=== PATIENT | male | born 2000 | race Hispanic/Latino ===

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

== ENCOUNTER 2022-06-12 16:13 | Emergency (ER) | payer BC, SELFPAY ==
[2022-06-12] MEDS ORDERED: DICYCLOMINE HCL 10 MG CAP ONE (17:04)
[2022-06-12] MEDS ORDERED: ONDANSETRON 4 MG/2 ML VIAL ONE (17:04)
[2022-06-12] MEDS ORDERED: FAMOTIDINE 20 MG/2 ML VIAL IV ONE (17:05)
[2022-06-12] MEDS ORDERED: NA CHLORIDE 0.9% 1,000 ML ONE (17:05)
[2022-06-12 17:09] LABS: Absolute Lymphocytes (CBC) 0.6 K/uL (0.7-4.9); Lymphocytes % 10.2 % (15.3-44.8); MCV 91.2 fL (80-100); MPV 8.4 fL (7.6-11.3); RBC Red Blood Cell Count 5.04 M/uL (4.33-5.43)
[2022-06-12 17:13] LABS: Specific Gravity < 1.005 (1.005-1.030); Urine Bilirubin NEGATIVE (Negative); Urine Blood Negative (Negative); Urine Clarity Clear (Clear); Urine Color Colorless (Yellow); Urine Glucose NEGATIVE (Negative); Urine Protein NEGATIVE (Negative); Urine Urobilinogen Normal (Normal)
[2022-06-12 17:30] LABS: Albumin 4.4 g/dL (3.4-5.0); Bilirubin Total 0.8 mg/dL (0.2-1.0); Potassium 3.3 mEq/L (3.5-5.1); Protein, Total 8.4 g/dL (6.4-8.2)
--- NOTE | 2022-06-12 18:41 | RAD REPORT ---
EXAM DESCRIPTION: CTAbdomen Pelvis W Contrast - 06/12/2022 6:24 pm CLINICAL HISTORY: ABD PAIN COMPARISON: No comparisons TECHNIQUE: CT of the abdomen and pelvis was performed. All CT scans are performed using dose optimization technique as appropriate and may include automated exposure control or mA/KV adjustment according to patient size. FINDINGS: Lower chest: No acute abnormality. Liver: No acute abnormality or suspicious lesions. Biliary: No biliary ductal dilatation. Stomach: No significant focal abnormality. Duodenum: No significant focal abnormality. Pancreas: No significant abnormality. Spleen: No significant abnormality. Adrenal: No suspicious lesions. Kidney/ureter: No hydronephrosis. No renal calculi. Retroperitoneum: No retroperitoneal adenopathy. Vascular: No aneurysm. Bowel: No significant focal abnormality. Normal appendix . Peritoneum: No ascites or free air. Bladder: Grossly unremarkable. Reproductive: No adnexal masses. Bones: No acute fracture. Other: n/a IMPRESSION: No acute intra-abdominal or pelvic finding. Normal appendix.
--- NOTE | 2022-06-12 18:45 | EDPHYS ---
Physician Documentation [facility] Name: Hipolito Kiran Age: 21 yrs Sex: Male : 2000 Arrival Date: 06/12/2022 Time: 16:13 Bed 20 Private MD: ED Physician Major Mancilla HPI: 06/12 16:49 This 21 yrs old Male presents to ER via Ambulatory with complaints of kb Abdominal Pain, Nausea/Vomiting/Diarrhea. 16:49 The patient presents with abdominal pain. The patient has not recently seen a physician.kb 16:50 The patient presents to the emergency department with nausea, vomiting, diarrhea, kb abdominal pain, described as crampy. Onset: The symptoms/episode began/occurred yesterday. Possible causes: unknown. The symptoms are aggravated by nothing. The symptoms are alleviated by nothing. Associated signs and symptoms: Pertinent positives: abdominal pain, diarrhea, nausea, vomiting. Severity of symptoms: At their worst the symptoms were moderate in the emergency department the symptoms are unchanged. The patient has not experienced similar symptoms in the past. Historical: - Allergies: 16:46 No Known Allergies; vg1 - Home Meds: 16:50 Acyclovir Oral [Active]; vg1 - Immunization history:: Client reports receiving the 2nd dose of the Covid vaccine. - Social history:: Smoking status: Patient reports the use of cigarette tobacco products, denies chronic smoking, but will smoke occasionally, Reported history of juuling and/or vaping. ROS: 16:47 Constitutional: Negative for fever, chills, and weight loss. kb 16:47 Abdomen/GI: Positive for abdominal pain, nausea, vomiting, and diarrhea, abdominal cramps. 16:47 All other systems are negative. Exam: 16:47 Constitutional: This is a well developed, well nourished patient who is awake, alert, kb and in no acute distress. Head/Face: Normocephalic, atraumatic. ENT: Moist Mucous membranes Cardiovascular: Regular rate and rhythm with a normal S1 and S2. No gallops, murmurs, or rubs. No pulse deficits. Respiratory: Respirations even and unlabored. No increased work of breathing. Talking in full sentences Skin: Warm, dry with normal turgor. Normal color. MS/ Extremity: Pulses equal, no cyanosis. Neurovascular intact. Full, normal range of motion. Neuro: Awake and alert, GCS 15, oriented to person, place, time, and situation. Moves all extremities. Normal gait. 16:47 Abdomen/GI: Inspection: abdomen appears normal, Bowel sounds: normal, Palpation: soft, in all quadrants, mild abdominal tenderness, in all quadrants. Vital Signs: 16:46 BP 135 / 74; Pulse 68; Resp 14; Temp 98.4(O); Pulse Ox 99% on R/A; Weight 54.43 kg; vg1 Height 5 ft. 8 in. ; 19:10 BP 128 / 71; Pulse 69; Resp 16; Pulse Ox 100% ; Pain 4/10; nj1 16:46 Body Mass Index 18.25 (54.43 kg, 172.72 cm) 1 19:10 Pain Scale: Adult nj1 MDM: 16:23 Patient medically screened. kb 16:47 Differential diagnosis: gastritis, pancreatitis, viral gastroenteritis. Data reviewed: vital signs, nurses notes. Historians other than the Patient: Parent: father. 18:44 Counseling: I had a detailed discussion with the patient and/or guardian regarding: the kb historical points, exam findings, and any diagnostic results supporting the discharge/admit diagnosis, lab results, radiology results, the need for outpatient follow up, a family practitioner, to return to the emergency department if symptoms worsen or persist or if there are any questions or concerns that arise at home. 06/12 16:26 Order name: CBC with Diff; Complete Time: 17:15 kb 06/12 16:26 Order name: CMP; Complete Time: 17:30 kb 06/12 16:26 Order name: Lipase; Complete Time: 17:30 kb 06/12 16:26 Order name: Urinalysis w/ reflexes; Complete Time: 17:15 kb 06/12 17:34 Order name: CT Abd/Pelvis - IV Contrast Only; Complete Time: 18:44 kb 06/12 16:26 Order name: IV Saline Lock; Complete Time: 17:07 kb 06/12 16:26 Order name: Labs collected and sent; Complete Time: 17:09 kb Administered Medications: 17:07 Drug: NS 0.9% IV 1000 ml Route: IV; Rate: 1 bolus; Site: right antecubital; ko1 17:07 Drug: Ondansetron IVP 4 mg Route: IVP; Site: right antecubital; ko1 17:08 Drug: Dicyclomine PO 20 mg Route: PO; ko1 19:10 Follow up: Response: No adverse reaction nj1 17:09 Drug: Famotidine IVP 20 mg Route: IVP; Site: right antecubital; ko1 18:55 Drug: Potassium Chloride PO 20 mEq Route: PO; ko1 19:10 Follow up: Response: No adverse reaction nj1 Disposition Summary: 06/12/22 18:44 Discharge Ordered Location: Home kb Condition: Stable kb Diagnosis - Nausea with vomiting, unspecified kb - Diarrhea, unspecified kb Followup: kb - With: Emergency Department - When: As needed - Reason: Worsening of condition Followup: kb - With: Private Physician - When: 2 - 3 days - Reason: Recheck today's complaints, Continuance of care, Re-evaluation by your physician Discharge Instructions: - Discharge Summary Sheet kb - Viral Gastroenteritis, Adult, [id number] kb Forms: - Medication Reconciliation Form kb - Thank You Letter kb - Antibiotic Education kb - Prescription Opioid Use kb Prescriptions: - ondansetron 4 mg Oral Tablet,disintegrating - take 1 tablet by ORAL route every 6 hours As needed; 12 tablet; Refills: 0, kb Product Selection Permitted - dicyclomine 20 mg Oral Tablet - take 1 tablet by ORAL route 4 times per day As needed; 20 tablet; Refills: 0, kb Product Selection Permitted Addendum: 06/14/2022 08:37 Co-signature as Attending Physician, Major Mancilla MD I reviewed the patient's care r n provided by the Advanced Practice Provider and agree with the diagnosis and treatment plan. Signatures: Dispatcher [employer] Mell Oseguera, APPLICATION COORDINATOR-C APPLICATION COORDINATOR-Ckb Major Mancilla MD MD rn Garcia, Victoria, RN RN vg1 Tahmina Scott RN RN ko1 Tamia Bagley RN nj1
--- NOTE | 2022-06-12 18:45 | ER ---
Nurse's Notes [facility] Name: Hipolito Kiran Age: 21 yrs Sex: Male : 2000 Arrival Date: 06/12/2022 Time: 16:13 Bed 20 Private MD: Diagnosis: Nausea with vomiting, unspecified;Diarrhea, unspecified Presentation: 06/12 16:44 Chief complaint: Patient states: ABD with NVD since yesterday morning. Coronavirus vg1 screen: Vaccine status: Patient reports receiving the 2nd dose of the covid vaccine. Client denies travel out of the [place] in the last 14 days. Ebola Screen: Patient negative for fever greater than or equal to 101.5 degrees Fahrenheit, and additional compatible Ebola Virus Disease symptoms Patient denies exposure to infectious person. Patient denies travel to an Ebola-affected area in the 21 days before illness onset. Risk Assessment: Do you want to hurt yourself or someone else?. Onset of symptoms was June 12, 2022. 16:44 Method Of Arrival: Ambulatory vg1 16:44 Acuity: BECK 3 ss Triage Assessment: 16:46 General: Appears in no apparent distress. uncomfortable, Behavior is calm, cooperative. vg1 Pain: Complains of pain in abdomen. Cardiovascular: Patient's skin is warm and dry. GI: Abdomen is flat, Reports diarrhea, nausea, vomiting. Historical: - Allergies: 16:46 No Known Allergies; vg1 - Home Meds: 16:50 Acyclovir Oral [Active]; vg1 - Immunization history:: Client reports receiving the 2nd dose of the Covid vaccine. - Social history:: Smoking status: Patient reports the use of cigarette tobacco products, denies chronic smoking, but will smoke occasionally, Reported history of juuling and/or vaping. Screenin:05 [facility] ED Fall Risk Assessment (Adult) History of falling in the last 3 months, ko1 including since admission No falls in past 3 months (0 pts) Confusion or Disorientation No (0 pts) Intoxicated or Sedated No (0 pts) Impaired Gait No (0 pts) Mobility Assist Device Used No (0 pt) Altered Elimination No (0 pt) Score/Fall Risk Level 0 - 2 = Low Risk Oriented to surroundings, Maintained a safe environment, Educated pt \T\ family on fall prevention, incl call for assistance when getting out of bed, Assessed \T\ reinforced patient's understanding of fall precautions, Provided non-skid footwear, Hourly rounding (assess needs \T\ fall precautionary measures) done, Used ambulatory aids as needed (educated on \T\ assisted with), Used gait belt as appropriate. Abuse screen: Denies threats or abuse. Denies injuries from another. Nutritional screening: No deficits noted. Tuberculosis screening: No symptoms or risk factors identified. Assessment: 17:05 General: Appears in no apparent distress. uncomfortable, Behavior is calm, cooperative, ko1 appropriate for age, flat. Pain: Complains of pain in abdomen. Neuro: No deficits noted. Cardiovascular: No deficits noted. Respiratory: No deficits noted. GI: Bowel sounds present X 4 quads. Abd is soft X 4 quads Reports lower abdominal pain, upper abdominal pain, diarrhea, nausea, vomiting. : No deficits noted. EENT: No deficits noted. Derm: No deficits noted. Musculoskeletal: No deficits noted. Vital Signs: 16:46 BP 135 / 74; Pulse 68; Resp 14; Temp 98.4(O); Pulse Ox 99% on R/A; Weight 54.43 kg; vg1 Height 5 ft. 8 in. ; 19:10 BP 128 / 71; Pulse 69; Resp 16; Pulse Ox 100% ; Pain 4/10; nj1 16:46 Body Mass Index 18.25 (54.43 kg, 172.72 cm) vg1 19:10 Pain Scale: Adult [facility] ED Course: 16:22 Patient arrived in ED. am2 16:22 Mell Burns FNP-C [facility]. kb 16:22 Major Mancilla MD is Attending Physician. kb 16:46 Arm band placed on. vg1 16:56 Tahmina Scott, CARROL is Primary Nurse. ko1 17:05 Patient has correct armband on for positive identification. Bed in low position. Call ko1 light in reach. Side rails up X 1. Adult w/ patient. Pulse ox on. NIBP on. Warm blanket given. 17:05 No provider procedures requiring assistance completed. Inserted saline lock: 20 gauge ko1 in right antecubital area, using aseptic technique. Blood collected. 17:55 Triage completed. ss 18:26 CT Abd/Pelvis - IV Contrast Only In Process Unspecified. EDMS 19:10 IV discontinued, intact, bleeding controlled. nj1 Administered Medications: 17:07 Drug: NS 0.9% IV 1000 ml Route: IV; Rate: 1 bolus; Site: right antecubital; ko1 17:07 Drug: Ondansetron IVP 4 mg Route: IVP; Site: right antecubital; ko1 17:08 Drug: Dicyclomine PO 20 mg Route: PO; ko1 19:10 Follow up: Response: No adverse reaction nj1 17:09 Drug: Famotidine IVP 20 mg Route: IVP; Site: right antecubital; ko1 18:55 Drug: Potassium Chloride PO 20 mEq Route: PO; ko1 19:10 Follow up: Response: No adverse reaction nj1 Medication: 17:05 VIS not applicable for this client. ko1 Outcome: 18:44 Discharge ordered by MD. kb 19:10 Discharged to home ambulatory, with family. nj1 19:10 Condition: stable nj1 19:10 Discharge instructions given to patient, family, Instructed on discharge instructions, follow up and referral plans. medication usage, Demonstrated understanding of instructions, follow-up care, medications, Prescriptions given X 2. 19:12 Patient left the ED. nj1 Signatures: Dispatcher [employer] EDMS Mell Burns, OVER SHORT AND DAMAGE CLERK-C OVER SHORT AND DAMAGE CLERK-Ckb Francesca eNal, RN RN Melissa Fox Victoria, RN RN vg1 Tahmina Scott RN RN ko1 Tamia Bagley, CARROL RN nj1 Corrections: (The following items were deleted from the chart) 19:12 17:10 BP 128 / 71; Pulse 69bpm; Resp 16bpm; Pulse Ox 100%; Pain 4/10, Adult; nj1 nj1
[2022-06-12] MEDS ORDERED: POTASSIUM CL SA 10 MEQ TAB PO ONE (19:00)
[2022-06-12 19:29] VITALS: TEMP 98.4
[2022-06-12 19:31] VITALS: BP 128/71; O2SAT 100
== END 2022-06-12 19:12 | disposition home or self-care (01) ==
LOC: ER 16:13
DX: R11.2 Nausea with vomiting, unspecified (principal); R19.7 Diarrhea, unspecified
CPT/HCPCS: 36415; 74177; 80053; 81003; 83690; 85025; 96374; 96375; 99284; J2405; J7030; Q9967

== ENCOUNTER 2022-06-21 12:48 | Emergency (ER) | payer SELFPAY ==
[2022-06-21 13:34] LABS: Absolute Lymphocytes (CBC) 0.5 K/uL (0.7-4.9); Hematocrit 48.7 % (39.6-49.0); Lymphocytes % 9.5 % (15.3-44.8); MCV 91.6 fL (80-100); MPV 8.9 fL (7.6-11.3); RBC Red Blood Cell Count 5.31 M/uL (4.33-5.43)
[2022-06-21 13:34] LABS: Specific Gravity < 1.005 (1.005-1.030); Urine Bilirubin NEGATIVE (Negative); Urine Blood Negative (Negative); Urine Clarity Clear (Clear); Urine Color Colorless (Yellow); Urine Glucose NEGATIVE (Negative); Urine Protein NEGATIVE (Negative); Urine Urobilinogen Normal (Normal)
[2022-06-21] MEDS ORDERED: KETOROLAC 30 MG/ML INJ ONE (13:42)
[2022-06-21] MEDS ORDERED: PROMETHAZINE INJ 25 MG/ML AMP ONE (13:42)
[2022-06-21] MEDS ORDERED: NA CHLORIDE 0.9% 1,000 ML ONE (13:43)
[2022-06-21 13:47] LABS: Barbiturates NEGATIVE (NEGATIVE); Benzodiazepines NEGATIVE (NEGATIVE); Cocaine NEGATIVE (NEGATIVE); METHAMPHETAM NEGATIVE (NEGATIVE); Methadone NEGATIVE (NEGATIVE); Opiates NEGATIVE (NEGATIVE); Phencyclidine NEGATIVE (NEGATIVE); THC Cannibis POSITIVE (NEGATIVE)
[2022-06-21 13:49] LABS: Albumin 4.7 g/dL (3.4-5.0); Bilirubin Total 0.7 mg/dL (0.2-1.0); Potassium 3.9 mEq/L (3.5-5.1); Protein, Total 8.9 g/dL (6.4-8.2)
[2022-06-21] MEDS ORDERED: LORazepam 2 MG/ML VIAL ONE (14:04)
--- NOTE | 2022-06-21 14:16 | RAD REPORT ---
EXAM DESCRIPTION: RAD - Abdomen Acute Series - 06/21/2022 2:06 pm CLINICAL HISTORY: ABD PAIN COMPARISON: ABDOMEN ACUTE SERIES dated 02/05/2011; Abdomen Pelvis W Contrast dated 06/12/2022 FINDINGS: Nonobstructive bowel gas pattern. No acute osseous abnormality.Visualized lungs are unrema rkable.No abnormal calcifications. Distended but nondilated small bowel centrally. IMPRESSION: Nonobstructive bowel gas pattern.
--- NOTE | 2022-06-21 14:37 | ER ---
Nurse's Notes [facility] Name: Hipolito Kiran Age: 21 yrs Sex: Male : 2000 Arrival Date: 06/21/2022 Time: 12:48 Bed 20 Private MD: Diagnosis: Nausea and vomiting;Anxiety;Marijuana use Presentation: 06/21 12:52 Chief complaint: Patient states: Vomiting X 1 week. Coronavirus screen: At this time, ld1 the client does not indicate any symptoms associated with coronavirus-19. Ebola Screen: No symptoms or risks identified at this time. Initial Sepsis Screen: Does the patient meet any 2 criteria? No. Patient's initial sepsis screen is negative. Does the patient have a suspected source of infection? No. Patient's initial sepsis screen is negative. Risk Assessment: Do you want to hurt yourself or someone else? Patient reports no desire to harm self or others. Onset of symptoms was June 21, 2022. 12:52 Method Of Arrival: Ambulatory ld1 12:52 Acuity: BECK 3 ld1 Triage Assessment: 12:52 General: Appears in no apparent distress. comfortable, Behavior is calm, cooperative, ld1 appropriate for age. Pain: Complains of pain in right lower quadrant and left lower quadrant Pain does not radiate. Pain currently is 6 out of 10 on a pain scale. EENT: No signs and/or symptoms were reported regarding the EENT system. Neuro: Level of Consciousness is awake, alert, obeys commands, Oriented to person, place, time, situation. Cardiovascular: Capillary refill < 3 seconds Patient's skin is warm and dry. Respiratory: Airway is patent Respiratory effort is even, unlabored. GI: Abdomen is flat, non-distended, Reports lower abdominal pain, nausea. : No signs and/or symptoms were reported regarding the genitourinary system. Derm: No signs and/or symptoms reported regarding the dermatologic system. Musculoskeletal: No signs and/or symptoms reported regarding the musculoskeletal system. Historical: - Allergies: 12:52 No Known Allergies; ld1 - Home Meds: 12:52 Acyclovir Oral [Active]; ld1 - PMHx: 12:52 Herpes simplex; ld1 - PSHx: 12:52 None; ld1 - Immunization history:: Adult Immunizations up to date, Client reports receiving the 2nd dose of the Covid vaccine. - Social history:: Smoking status: Reported history of juuling and/or vaping. Patient/guardian denies using alcohol. Screenin:28 [facility] ED Fall Risk Assessment (Adult) Score/Fall Risk Level 0 - 2 = Low Risk ll1 Oriented to surroundings, Maintained a safe environment, Educated pt \T\ family on fall prevention, incl call for assistance when getting out of bed, Hourly rounding (assess needs \T\ fall precautionary measures) done. Abuse screen: Denies threats or abuse. Nutritional screening: No deficits noted. Tuberculosis screening: No symptoms or risk factors identified. Assessment: 13:35 Reassessment: No changes from previously documented assessment. Patient and/or family ll1 updated on plan of care and expected duration. Pain level reassessed. Patient is alert, oriented x 3, equal unlabored respirations, skin warm/dry/pink. 14:27 Reassessment: No changes from previously documented assessment. Dr. Lamb at . ll1 Vital Signs: 12:52 BP 141 / 91; Pulse 78; Resp 18; Temp 97.9(O); Pulse Ox 99% on R/A; Weight 54.43 kg; ld1 Height 5 ft. 8 in. ; Pain 6/10; 14:29 BP 136 / 88; Pulse 77; Resp 17; Pulse Ox 100% on R/A; ll1 12:52 Body Mass Index 18.25 (54.43 kg, 172.72 cm) ld1 12:52 Pain Scale: Adult ld1 ED Course: 12:50 Patient arrived in ED. rg4 12:50 Tania Lamb MD is Attending Physician. sd2 12:52 Triage completed. ld1 12:52 Arm band placed on right wrist. ld1 13:09 Sarita Galeas, RN is Primary Nurse. ph 13:30 Inserted saline lock: 22 gauge in right antecubital area, using aseptic technique. ll1 Blood collected. 13:33 Flu Sent. ph 13:33 Urine Drug Screen Sent. ph 13:33 Urinalysis w/ reflexes Sent. ph 14:07 XRAY Abdomen Acute Series In Process Unspecified. EDMS 14:28 Patient has correct armband on for positive identification. Bed in low position. Call ll1 light in reach. Client placed on continuous cardiac and pulse oximetry monitoring. NIBP monitoring applied. 14:45 IV discontinued, intact, bleeding controlled, No redness/swelling at site. Pressure ll1 dressing applied. 14:50 No provider procedures requiring assistance completed. ll1 Administered Medications: 13:43 Drug: NS 0.9% IV 1000 ml Route: IV; Rate: 1 bolus; Site: right antecubital; ph 14:51 Follow up: Response: No adverse reaction; IV Status: Completed infusion; IV Intake: ll1 1000ml 13:43 Drug: Promethazine IVP 12.5 mg Route: IVP; Site: right antecubital; ph 14:17 Follow up: Response: No adverse reaction; Nausea is decreased ph 13:44 Drug: Ketorolac IVP 15 mg Route: IVP; Site: right antecubital; ph 14:17 Follow up: Response: No adverse reaction; Pain is decreased; RASS: Alert and Calm (0) ph 14:12 Drug: Ativan IVP 1 mg {Note: RASS 0.} Route: IVP; Site: right antecubital; ph 14:51 Follow up: Response: No adverse reaction ll1 Medication: 14:51 VIS not applicable for this client. ll1 Intake: 14:51 IV: 1000ml; Total: 1000ml. ll1 Outcome: 14:36 Discharge ordered by . sd2 14:47 Patient left the ED. ll1 14:50 Discharged to home ambulatory. ll1 14:50 Condition: stable 14:50 Discharge instructions given to patient, family, Instructed on discharge instructions, follow up and referral plans. no drinking with medication, no driving heavy equipment, medication usage, Demonstrated understanding of instructions, follow-up care, medications, Prescriptions given X 2. Signatures: Dispatcher [employer] EDMS Sarita Galeas RN RN Kyra Malave rg4 Michael Mireles RN RN ll1 Rose Stewart RN RN Tania Lainez MD MD sd2 Corrections: (The following items were deleted from the chart) 13:48 13:33 SARS-COV-2 Antigen Rapid+I.LAB.BRZ drawn and sent. CANDE
--- NOTE | 2022-06-21 14:37 | EDPHYS ---
Physician Documentation [facility] Name: Hipolito Kiran Age: 21 yrs Sex: Male : 2000 Arrival Date: 06/21/2022 Time: 12:48 Bed 20 Private MD: ED Physician Tania Lamb HPI: 06/21 13:03 This 21 yrs old Male presents to ER via Ambulatory with complaints of Vomiting.sd2 13:03 21-year-old male presents with chief complaint of nausea and vomiting. He was seen here sd2 last week for similar symptoms with associated abdominal pain and diarrhea. He reports the diarrhea has improved but he has still had some here and there. He states he has not been able to keep anything down at home despite taking the Bentyl and Zofran that was prescribed for him. He does have a scheduled follow-up appointment with his PCP but is not until next week. Pain is mostly localized to left side of abdomen per patient report and feels like a cramping sensation. Denies any new food exposures, antibiotic use or recent travel. pt also reports fever with temp of 103F 2 days ago. . Historical: - Allergies: 12:52 No Known Allergies; ld1 - Home Meds: 12:52 Acyclovir Oral [Active]; ld1 - PMHx: 12:52 Herpes simplex; ld1 - PSHx: 12:52 None; ld1 - Immunization history:: Adult Immunizations up to date, Client reports receiving the 2nd dose of the Covid vaccine. - Social history:: Smoking status: Reported history of juuling and/or vaping. Patient/guardian denies using alcohol. ROS: 13:03 Constitutional: Negative for fever, chills, and weight loss, Eyes: Negative for injury, sd2 pain, redness, and discharge, Cardiovascular: Negative for chest pain, palpitations, and edema, Respiratory: Negative for shortness of breath, cough, wheezing. Abdomen/GI: Positive for abdominal pain, nausea, vomiting, diarrhea. MS/Extremity: Negative for injury and deformity, Skin: Negative for injury, rash, and discoloration, Neuro: Negative for headache, numbness and tingling. Exam: 13:03 Constitutional: This is a well developed, well nourished patient who is awake, alert, sd2 and in no acute distress. Head/Face: Normocephalic, atraumatic. Eyes: EOMI, normal conjunctiva bilaterally Chest/axilla: Normal chest wall appearance and motion. Nontender with no deformity. Cardiovascular: Regular rate and rhythm with a normal S1 and S2. No gallops, murmurs, or rubs. 2+ distal pulses. Respiratory: Lungs have equal breath sounds bilaterally, clear to auscultation and percussion. No rales, rhonchi or wheezes noted. No increased work of breathing, no retractions or nasal flaring. Abdomen/GI: Soft, non-tender, with normal bowel sounds. No guarding or rebound. No evidence of tenderness throughout. Skin: Warm, dry with normal turgor. Normal color with no rashes, no lesions, and no evidence of cellulitis. MS/ Extremity: Pulses equal, no cyanosis. Neurovascular intact. Full, normal range of motion. Ambulatory without difficulty. Psych: Awake, alert, with orientation to person, place and time. Behavior, mood, and affect are within normal limits. Vital Signs: 12:52 BP 141 / 91; Pulse 78; Resp 18; Temp 97.9(O); Pulse Ox 99% on R/A; Weight 54.43 kg; ld1 Height 5 ft. 8 in. ; Pain 6/10; 14:29 BP 136 / 88; Pulse 77; Resp 17; Pulse Ox 100% on R/A; ll1 12:52 Body Mass Index 18.25 (54.43 kg, 172.72 cm) ld1 12:52 Pain Scale: Adult ld1 MDM: 13:01 Patient medically screened. sd2 13:03 Differential diagnosis: Gastritis, cholecystitis, pancreatitis, SBO, diverticulitis, sd2 kidney stone, appendicitis, UTI, dehydration, electrolyte abnormality among others. Data reviewed: vital signs, nurses notes. 14:33 Data reviewed: lab test result(s), radiologic studies, plain films. Consideration of sd2 Admission/Observation Escalation of care including admission/observation considered. I considered the following discharge prescriptions or medication management in the emergency department Medications were administered in the Emergency Department. See MAR. Independent interpretation of the following test(s) in the Emergency Department X-Ray: My interpretation is no obstructive process. Test considered but Not performed: CT: CT performed and negative 1 week ago, benign abdomen today. Historians other than the Patient: Parent: provides further history. Care significantly affected by the following chronic conditions: Anxiety. Counseling: I had a detailed discussion with the patient and/or guardian regarding: the historical points, exam findings, and any diagnostic results supporting the discharge/admit diagnosis, lab results, radiology results, the need for outpatient follow up, to return to the emergency department if symptoms worsen or persist or if there are any questions or concerns that arise at home. Response to treatment: the patient's symptoms have markedly improved after treatment. ED course: Labs and imaging reviewed. Labs are grossly within normal clinical limits. X-ray with no signs of obstructive process. With the patient's abdominal exam today being benign and his symptoms improved after medications, I do not see a reason to repeat the CT scan due to the radiation risk which was discussed with the patient and he is in agreement at this time. After further discussion with the nurse and his father at bedside, the patient reports he thinks a lot of this may be due to his anxiety. He has gone off of his medication that he was previously on which included Seroquel and Lamictal back in September and has had progressively worsening anxiety since then. He states he was on the same dose for 2 years and decided to try to go off of it himself. He is requesting to restart. He will also follow back up with his provider, Tania Bell, who he saw previously for these issues. Pt also THC positive. Advised on cessation of marijuana which he uses daily. Pt is in agreement and states he will not drink or smoke as he did not previously when on the medication.. 06/21 13:03 Order name: CBC with Diff; Complete Time: 13:56 sd2 06/21 13:03 Order name: CMP; Complete Time: 13:56 sd2 06/21 13:03 Order name: Lipase; Complete Time: 13:56 sd2 06/21 13:03 Order name: Urinalysis w/ reflexes; Complete Time: 13:56 sd2 06/21 13:03 Order name: Urine Drug Screen; Complete Time: 13:56 sd2 06/21 13:06 Order name: Flu; Complete Time: 14:23 sd2 06/21 13:39 Order name: SARS-COV-2 RT PCR; Complete Time: 14:17 em1 06/21 13:03 Order name: XRAY Abdomen Acute Series; Complete Time: 14:17 sd2 Administered Medications: 13:43 Drug: NS 0.9% IV 1000 ml Route: IV; Rate: 1 bolus; Site: right antecubital; ph 14:51 Follow up: Response: No adverse reaction; IV Status: Completed infusion; IV Intake: ll1 1000ml 13:43 Drug: Promethazine IVP 12.5 mg Route: IVP; Site: right antecubital; ph 14:17 Follow up: Response: No adverse reaction; Nausea is decreased ph 13:44 Drug: Ketorolac IVP 15 mg Route: IVP; Site: right antecubital; ph 14:17 Follow up: Response: No adverse reaction; Pain is decreased; RASS: Alert and Calm (0) ph 14:12 Drug: Ativan IVP 1 mg {Note: RASS 0.} Route: IVP; Site: right antecubital; ph 14:51 Follow up: Response: No adverse reaction ll1 Disposition Summary: 06/21/22 14:36 Discharge Ordered Location: Home sd2 Problem: an ongoing problem sd2 Symptoms: have improved sd2 Condition: Stable sd2 Diagnosis - Nausea and vomiting sd2 - Anxiety sd2 - Marijuana use sd2 Followup: sd2 - With: Private Physician - When: 1 - 2 days - Reason: Recheck today's complaints, Continuance of care, Re-evaluation by your physician Discharge Instructions: - Discharge Summary Sheet sd2 - Preventing Marijuana Misuse sd2 - Managing Anxiety, Adult sd2 - Cannabinoid Hyperemesis Syndrome sd2 Forms: - Work release form ll1 - Medication Reconciliation Form sd2 - Thank You Letter sd2 - Antibiotic Education sd2 - Prescription Opioid Use sd2 Prescriptions: - Lamictal 25 mg Oral tablet - take 1 tablet by ORAL route daily; 14 tablet; Refills: 0, Product Selection sd2 Permitted - Seroquel 25 mg Oral tablet - take 1 tablet by ORAL route daily; 14 tablet; Refills: 0, Product Selection sd2 Permitted Signatures: Dispatcher [employer] Sarita Gamez RN RN ph Rose Stewart RN RN ld1 Tania Lamb MD MD sd2 Michael Mireles RN ll1 Corrections: (The following items were deleted from the chart) 13:05 13:03 21-year-old male presents with chief complaint of nausea and vomiting. He was sd2 seen here last week for similar symptoms with associated abdominal pain and diarrhea. He reports the diarrhea has improved but he has still had some here and there. He states he has not been able to keep anything down at home despite taking the Bentyl and Zofran that was prescribed for him. He does have a scheduled follow-up appointment with his PCP but is not until next week. Pain is mostly localized to left side of abdomen per patient report and feels like a cramping sensation. Denies any new food exposures, antibiotic use or recent travel.. sd2 13:48 13:07 SARS-COV-2 Antigen Rapid+I.LAB.BRZ ordered. EDMS EDMS
[2022-06-21 15:06] VITALS: TEMP 97.9
[2022-06-21 15:11] VITALS: BP 136/88; O2SAT 100
== END 2022-06-21 14:47 | disposition home or self-care (01) ==
LOC: ER 12:48
DX: R11.2 Nausea with vomiting, unspecified (principal); F41.9 Anxiety disorder, unspecified; F12.90 Cannabis use, unspecified, uncomplicated
CPT/HCPCS: 74022; 80053; 80307; 81003; 83690; 85025; 87804; 96361; 96374; 96375; 99284; J2550; J7030; U0003

== ENCOUNTER 2022-06-25 09:41 | Emergency (ER) | payer SELFPAY ==
[2022-06-25 10:54] LABS: Absolute Lymphocytes (CBC) 0.5 K/uL (0.7-4.9); Hematocrit 48.5 % (39.6-49.0); Lymphocytes % 17.2 % (15.3-44.8); MCV 91.3 fL (80-100); MPV 8.8 fL (7.6-11.3); RBC Red Blood Cell Count 5.31 M/uL (4.33-5.43)
[2022-06-25 11:01] LABS: Barbiturates NEGATIVE (NEGATIVE); Benzodiazepines NEGATIVE (NEGATIVE); Cocaine NEGATIVE (NEGATIVE); METHAMPHETAM NEGATIVE (NEGATIVE); Methadone NEGATIVE (NEGATIVE); Opiates NEGATIVE (NEGATIVE); Phencyclidine NEGATIVE (NEGATIVE); THC Cannibis POSITIVE (NEGATIVE)
[2022-06-25 11:23] LABS: ALT/SGPT 15 U/L (16-61); AST/SGOT 9 U/L (15-37); Albumin 4.4 g/dL (3.4-5.0); Alkaline Phosphatase 78 U/L (45-117); BUN Blood Urea Nitrogen 11 mg/dL (7-18); Bicarbonate 28 mEq/L (21-32); Bilirubin Direct 0.2 mg/dL (0-0.2); Bilirubin Indirect, Calculated 0.4 mg/dL (0.2-0.8); Bilirubin Total 0.6 mg/dL (0.2-1.0); Glomerular Filtration Rate 93 ml/min (=/>90); Glucose Level 103 mg/dL (74-106); Potassium 3.6 mEq/L (3.5-5.1); Protein, Total 8.3 g/dL (6.4-8.2); Sodium Level 137 mEq/L (136-145)
[2022-06-25 12:30] LABS: Blood Morphology Comment NOT SEEN (NOT SEEN); Platelet Estimate ADEQ
--- NOTE | 2022-06-25 12:53 | ER ---
Nurse's Notes [facility] Name: Hipolito Kiran Age: 21 yrs Sex: Male : 2000 Arrival Date: 06/25/2022 Time: 09:41 Bed 14 Private MD: Diagnosis: Suicidal ideations Presentation: 06/25 09:54 Chief complaint: Patient states: Suicidal thought with a plan "overdose", never nj1 attempted in the past. Coronavirus screen: Vaccine status: Patient reports receiving the 2nd dose of the covid vaccine. Ebola Screen: No symptoms or risks identified at this time. Initial Sepsis Screen: Does the patient meet any 2 criteria? No. Patient's initial sepsis screen is negative. Does the patient have a suspected source of infection? No. Patient's initial sepsis screen is negative. Risk Assessment: Do you want to hurt yourself or someone else? Patient reports desire/thoughts of hurting themselves or someone else. Provider notified. Onset of symptoms was June 22, 2022. 09:54 Method Of Arrival: Ambulatory [facility] 09:54 Acuity: BECK 2 nj Historical: - Allergies: 09:57 No Known Allergies; nj1 - Home Meds: 09:57 Acyclovir Oral [Active]; nj1 - PMHx: 09:57 Herpes simplex; nj1 - PSHx: 09:57 None; nj1 - Immunization history:: Client reports having NOT received the Covid vaccine. - Social history:: Smoking status: Reported history of juuling and/or vaping. Screenin:10 [facility] ED Fall Risk Assessment (Adult) History of falling in the last 3 months, db including since admission No falls in past 3 months (0 pts) Confusion or Disorientation No (0 pts) Intoxicated or Sedated No (0 pts) Impaired Gait No (0 pts) Mobility Assist Device Used Yes (1 pt) Altered Elimination No (0 pt) Score/Fall Risk Level 0 - 2 = Low Risk Oriented to surroundings, Maintained a safe environment. Abuse screen: Denies threats or abuse. Denies injuries from another. Nutritional screening: No deficits noted. Tuberculosis screening: No symptoms or risk factors identified. Assessment: 10:05 Reassessment: patient to room with SI. db 10:10 Reassessment: Patient appears in no apparent distress at this time. Patient and/or db family updated on plan of care and expected duration. Pain level reassessed. patient is changing into blue scrubs. 10:15 General: Appears in no apparent distress. comfortable, slender, Behavior is calm, ko1 cooperative, appropriate for age, flat, quiet. Pain: Denies pain. Neuro: No deficits noted. Cardiovascular: No deficits noted. Respiratory: No deficits noted. GI: No deficits noted. : No deficits noted. EENT: No deficits noted. Derm: No deficits noted. Musculoskeletal: No deficits noted. 12:15 Reassessment: Patient appears in no apparent distress at this time. Patient and/or eh3 family updated on plan of care and expected duration. Pain level reassessed. Pt speaking with [facility] at bedside. 13:15 Reassessment: Patient appears in no apparent distress at this time. Patient and/or eh3 family updated on plan of care and expected duration. Pain level reassessed. Patient is alert, oriented x 3, equal unlabored respirations, skin warm/dry/pink. Pt sitting up on side of bed eating lunch. Sister visiting at bedside. 14:15 Reassessment: Patient appears in no apparent distress at this time. Patient and/or eh3 family updated on plan of care and expected duration. Pain level reassessed. Patient is alert, oriented x 3, equal unlabored respirations, skin warm/dry/pink. Sister visiting at bedside. 15:15 Reassessment: Patient appears in no apparent distress at this time. Patient and/or eh3 family updated on plan of care and expected duration. Pain level reassessed. Patient is alert, oriented x 3, equal unlabored respirations, skin warm/dry/pink. Sister visiting at bedside. 16:15 Reassessment: Patient appears in no apparent distress at this time. Patient and/or eh3 family updated on plan of care and expected duration. Pain level reassessed. Patient is alert, oriented x 3, equal unlabored respirations, skin warm/dry/pink. Sister visiting at bedside. 17:15 Reassessment: Patient appears in no apparent distress at this time. Patient and/or eh3 family updated on plan of care and expected duration. Pain level reassessed. Patient is alert, oriented x 3, equal unlabored respirations, skin warm/dry/pink. Sister visiting at bedside. 18:15 Reassessment: Patient appears in no apparent distress at this time. Patient and/or eh3 family updated on plan of care and expected duration. Pain level reassessed. Patient is alert, oriented x 3, equal unlabored respirations, skin warm/dry/pink. Sister visiting at bedside. 19:15 Reassessment: Patient appears in no apparent distress at this time. Patient and/or eh3 family updated on plan of care and expected duration. Pain level reassessed. Patient is alert, oriented x 3, equal unlabored respirations, skin warm/dry/pink. Brother visiting at bedside. 20:15 Reassessment: Patient appears in no apparent distress at this time. Patient and/or eh3 family updated on plan of care and expected duration. Pain level reassessed. Patient is alert, oriented x 3, equal unlabored respirations, skin warm/dry/pink. Brother visiting at bedside. 21:15 Reassessment: Patient appears in no apparent distress at this time. Patient is alert, eh3 oriented x 3, equal unlabored respirations, skin warm/dry/pink. 22:15 Reassessment: Patient appears in no apparent distress at this time. Patient is alert, eh3 oriented x 3, equal unlabored respirations, skin warm/dry/pink. 06/26 00:00 General: pt resting with eyes closed, sitter at bedside, respirations even and non as6 labored . 02:00 Reassessment: Patient appears in no apparent distress at this time. pt resting with eye as6 closed, sitter at bedside. 04:00 Reassessment: Patient appears in no apparent distress at this time. No changes from as6 previously documented assessment. General:. 05:23 Reassessment: Patient appears in no apparent distress at this time. Spoke with Gal garner with [facility]. 06:00 Reassessment: Patient appears in no apparent distress at this time. No changes from as6 previously documented assessment. pt resting with eyes closed, sitter at bedside. no complaints or concerns at this time. 07:12 Reassessment: Patient appears in no apparent distress at this time. No changes from ko1 previously documented assessment. Patient and/or family updated on plan of care and expected duration. Pain level reassessed. Patient is alert, oriented x 3, equal unlabored respirations, skin warm/dry/pink. Patient denies pain at this time. Psych: 06/25 10:05 [place] Suicide Severity Screening: In the past month, have you wished you were db or wished you could go to sleep and not wake up? Patient responds "yes." "In the past month, have you actually had any thoughts of killing yourself?" Patient responds "yes." "In your lifetime, have you ever done anything, started to do anything, or prepared to do anything to end your life?" Patient responds "no.". Subjective: Patient's mood is sad, Delusions are denied, Hallucinations are denied Having thoughts of suicide. Subjective: Having thoughts of suicide. Plan for suicide is overdose on pills. Objective: Patient is cooperative, Speech is normal, Affect is appropriate. Interventions: Removed personal items and placed in bag. Patient placed in hospital gown. Searched person for dangerous items. Urine collected and sent for urine drug test. Belonging list filled out. Patient reassessed during use of restraints. Patient is physically safe. Safety Checks: Personal items have been removed. Door is open. Visitors are present. sister. Pt denies substance abuse. Commitment: Patient will be a voluntary commitment. Vital Signs: 09:54 BP 136 / 90; Pulse 92; Resp 16; Temp 98.2(O); Pulse Ox 100% ; Weight 54.43 kg; Height 5 nj1 ft. 8 in. ; Pain 3/10; 20:45 BP 129 / 83; Pulse 70; Resp 18; Temp 100(IR); Pulse Ox 100% on R/A; eh3 20:50 Temp 98.4(O); 3 06/26 07:40 BP 126 / 73; Pulse 63; Resp 17; Temp 98.6; Pulse Ox 98% on R/A; rs5 06/25 09:54 Body Mass Index 18.25 (54.43 kg, 172.72 cm) nh1 06/25 09:54 Pain Scale: Adult [facility] ED Course: 06/25 09:43 Patient arrived in ED. rg4 09:44 Deshaun Fonseca PA is PHCP. jmm 09:44 Virgilio Stewart DO is Attending Physician. jmm 09:57 Triage completed. nj1 09:58 Arm band placed on left wrist. nj1 10:05 Anabelle Dia, RN is Primary Nurse. db 10:10 Patient placed in an exam room. db 10:15 Patient has correct armband on for positive identification. Bed in low position. Call ko1 light in reach. Adult w/ patient. Valuables Given to family. Sitter at bedside. Noise minimized. Warm blanket given. Patient is placed in psych hold. 10:32 Urine Drug Screen Sent. ko1 10:43 Inserted saline lock: 20 gauge in right forearm, using aseptic technique. Blood zm collected. 10:45 Acetaminophen Sent. zm 10:45 Basic Metabolic Panel Sent. zm 10:45 CBC with Diff Sent. zm 10:45 ETOH Level Sent. zm 10:45 Hepatic Function Sent. zm 10:45 PT-INR Sent. zm 10:45 Ptt, Activated Sent. zm 10:45 Salicylate Sent. zm 10:45 Urine Drug Screen Sent. zm 14:58 faxed chart to [facility]. bd 18:23 spoke with Ruben at [facility], chart was received,pt is on wait list. 06/26 05:36 Paged [facility] resident requesting doc to doc. 1 05:37 Attending Physician role handed off by Virgilio Stewart DO sp4 05:37 Magno Swenson MD is Attending Physician. sp4 05:38 Received a call back from resident. 1 05:47 Doc to doc completed at [facility]. acceptance by Dr Blanco. 1 05:49 Called [facility]. They informed me to call for transfer after 8am. ah1 08:26 pt accepted in transfer to [facility] by dr blanco, admin approval given by mary Holcomb. 08:45 No provider procedures requiring assistance completed. IV discontinued, intact, ko1 bleeding controlled, No redness/swelling at site. Pressure dressing applied. Administered Medications: No medications were administered Medication: 06:09 VIS not applicable for this client. as6 Outcome: 06/25 12:53 ER care complete, transfer ordered by . kendrick 06/26 08:45 Transferred by ground EMS [facility]. to other acute care facility: [place] [id number] Psych. Transfer form completed. Condition: stable Discharge instructions given to EMS, Instructed on the need for transfer, Demonstrated understanding of instructions. 08:47 Patient left the ED. ko1 Signatures: Daniela Mccurdy Joel, PA PA jmm Garcia, Rubi rg4 Jimmie Washington, RN RN as6 Sumi Galeas RN RN eh3 Rupa Londono Aylin, RN RN aa9 Tahmina Scott, RN RN ko1 Anabelle Dia, CARROL RN db Ruben Taylor rs5 Magno Swenson MD MD sp4 Tamia Bagley RN RN nj1 Jr [facility] Corrections: (The following items were deleted from the chart) 06/25 21:00 12:15 Reassessment: Patient appears in no apparent distress at this time. Patient eh3 and/or family updated on plan of care and expected duration. Pain level reassessed. Pt speaking with [facility] at bedside [facility] : 13:15 Reassessment: Patient appears in no apparent distress at this time. Patient eh3 and/or family updated on plan of care and expected duration. Pain level reassessed. Patient is alert, oriented x 3, equal unlabored respirations, skin warm/dry/pink. [facility] 13:15 Reassessment: Patient appears in no apparent distress at this time. Patient eh3 and/or family updated on plan of care and expected duration. Pain level reassessed. Patient is alert, oriented x 3, equal unlabored respirations, skin warm/dry/pink. Pt sitting up on side of bed eating lunch 3 : 14:15 Reassessment: Patient appears in no apparent distress at this time. Patient eh3 and/or family updated on plan of care and expected duration. Pain level reassessed. Patient is alert, oriented x 3, equal unlabored respirations, skin warm/dry/pink. 3 : 15:15 Reassessment: Patient appears in no apparent distress at this time. Patient eh3 and/or family updated on plan of care and expected duration. Pain level reassessed. Patient is alert, oriented x 3, equal unlabored respirations, skin warm/dry/pink. [facility] 06/26 05:45 05:36 Paged [facility] resident [place] [phone]
--- NOTE | 2022-06-25 12:53 | EDPHYS ---
Physician Documentation [facility] Name: Hipolito Kiran Age: 21 yrs Sex: Male : 2000 Arrival Date: 06/25/2022 Time: 09:41 Bed 14 Private MD: ED Physician Magno Swenson HPI: 06/25 10:01 This 21 yrs old Male presents to ER via Ambulatory with complaints of Suicidal jmm Ideation. 10:01 This is a 21-year-old male that presents to the ED with complaints of suicidal jmm ideation. Patient states he is, with a plan to overdose. Patient has felt similar in the past but is now wanted to act on it. Also states a history of cutting himself.. 10:01 The patient presents to the emergency department with suicide ideation. jmm 10:01 Onset: The symptoms/episode began/occurred today. Associated signs and symptoms: jmm Pertinent positives; suicide ideation, Pertinent negatives: abdominal pain, homicidal ideation, shortness of breath. The patient has not experienced similar symptoms in the past. Historical: - Allergies: 09:57 No Known Allergies; nj1 - Home Meds: 09:57 Acyclovir Oral [Active]; nj1 - PMHx: 09:57 Herpes simplex; nj1 - PSHx: 09:57 None; nj1 - Immunization history:: Client reports having NOT received the Covid vaccine. - Social history:: Smoking status: Reported history of juuling and/or vaping. ROS: 10:01 Constitutional: Negative for fever, chills, and weight loss, Cardiovascular: Negative jmm for chest pain, palpitations, and edema, Respiratory: Negative for shortness of breath, cough, wheezing, and pleuritic chest pain. 10:01 Psych: Positive for suicidal ideation. 10:01 All other systems are negative. Exam: 10:01 Constitutional: This is a well developed, well nourished patient who is awake, alert, jmm and in no acute distress. Head/Face: atraumatic. Eyes: EOMI, no conjunctival erythema appreciated ENT: Moist Mucus Membranes Neck: Trachea midline, Supple Chest/axilla: Normal chest wall appearance and motion. Cardiovascular: Regular rate and rhythm. No edema appreciated Respiratory: Normal respirations, no respiratory distress appreciated Abdomen/GI: Non distended Back: Normal ROM Skin: General appearance color normal 10:01 Musculoskeletal/extremity: ROM: intact in all extremities, full active range of motion. 10:01 Psych: Behavior/mood is pleasant, cooperative, anxious, suicidal. Vital Signs: 09:54 BP 136 / 90; Pulse 92; Resp 16; Temp 98.2(O); Pulse Ox 100% ; Weight 54.43 kg; Height 5 nj1 ft. 8 in. ; Pain 3/10; 20:45 BP 129 / 83; Pulse 70; Resp 18; Temp 100(IR); Pulse Ox 100% on R/A; eh3 20:50 Temp 98.4(O); eh3 06/26 07:40 BP 126 / 73; Pulse 63; Resp 17; Temp 98.6; Pulse Ox 98% on R/A; rs5 06/25 09:54 Body Mass Index 18.25 (54.43 kg, 172.72 cm) [facility] 06/25 09:54 Pain Scale: Adult [facility] MDM: 06/25 10:01 Patient medically screened. [facility] 17:28 Data reviewed: vital signs, nurses notes. Consideration of Admission/Observation [facility] Escalation of care including admission/observation considered. 06/26 07:10 Differential diagnosis: drug withdrawal. acute psychotic break, depression, psychosis sp4 secondary to non-compliance. ED course: Patient was accepted at [facility] and Dr. Blanco with psychiatry was given report on the patient. . 06/25 10:06 Order name: Acetaminophen; Complete Time: 11:26 [facility] 06/25 10:06 Order name: Basic Metabolic Panel; Complete Time: 11:26 [facility] 06/25 10:06 Order name: CBC with Diff; Complete Time: 12:30 [facility] 06/25 10:06 Order name: ETOH Level; Complete Time: 11:20 [facility] 06/25 10:06 Order name: Hepatic Function; Complete Time: 11:26 [facility] 06/25 10:06 Order name: PT-INR; Complete Time: 13:46 [facility] 06/25 10:06 Order name: Ptt, Activated; Complete Time: 13:46 [facility] 06/25 10:06 Order name: Salicylate; Complete Time: 11:45 [facility] 06/25 10:06 Order name: Urine Drug Screen; Complete Time: 11:03 [facility] 06/25 11:13 Order name: Manual Differential; Complete Time: 12:30 EDMS 06/25 10:06 Order name: EKG; Complete Time: 10:08 [facility] 06/25 10:14 Order name: Diet Finger Food; Complete Time: 10:15 zm 06/26 06:09 Order name: Diet Finger Food; Complete Time: 06:10 as6 06/26 08:28 Order name: EKG Electrocardiogram [facility] 06/25 10:06 Order name: EKG - Nurse/Tech; Complete Time: 10:45 [facility] 06/25 10:06 Order name: IV Saline Lock; Complete Time: 10:45 [facility] 06/25 10:06 Order name: Labs collected and sent; Complete Time: 10:45 [facility] 06/25 10:06 Order name: Suicide Screening ([place]); Complete Time: 12:15 [facility] Administered Medications: No medications were administered Disposition: 06/25 16:29 Co-signature as Attending Physician, Virgilio WALDEN was immediately available on-site ms3 in the Emergency Department for consultation in the care of the patient. Disposition Summary: 06/25/22 12:53 Transfer Ordered Transfer Location: [facility] Reason: Higher level of care jmm Condition: Stable jmm Problem: new jmm Symptoms: are unchanged jmm Accepting Physician: Psychiatry(06/26/22 08:47) koLenore Diagnosis - Suicidal ideations [facility] Discharge Instructions: - Discharge Summary Sheet 3 Forms: - Medication Reconciliation Form jmm - SBAR form jmm - Family Work Release 3 Signatures: Dispatcher [employer] EDMS Deshaun Fonseca PA PA Virgilio Martin DO DO ms3 Tahmina Scott, RN RN ko1 Magno Swenson MD MD sp4 Tamia Bagley RN RN nj1 Corrections: (The following items were deleted from the chart) 06/26 07:10 06/25 12:53 Psychiatry [facility] sp4 06/26 08:47 07:10 Psychiatry sp4 ko1
[2022-06-25 13:40] LABS: Protime INR 1.13
[2022-06-26] MEDS ORDERED: AZITHROMYCIN 250 MG TAB ONE (07:35)
--- NOTE | 2022-06-26 07:49 | EKG ---
Test Date: 2022-06-25 Test Time: 10:42:15 Marketing Sales Consultant: LOIS MEASUREMENT RESULTS: Intervals: Rate: 65 GA: QRSD: 90 QT: 386 QTc: 401 [place]: P: GA: QRS: 101 T: 46 INTERPRETIVE STATEMENTS: Junctional rhythm Rightward axis Early repolarization Abnormal ECG No previous ECG available for comparison Electronically Signed On 06-26-22 07:46:23 CDT by Jay Slade
[2022-06-26 09:14] VITALS: BP 126/73; TEMP 98.6; O2SAT 98
--- NOTE | 2022-06-26 13:49 | EKG ---
Test Date: 2022-06-25 Test Time: 10:44:28 Reprographics Associate: LOIS MEASUREMENT RESULTS: Intervals: Rate: 58 [place]: QRSD: 98 QT: 360 QTc: 353 [place]: P: [place]: QRS: 104 T: 62 INTERPRETIVE STATEMENTS: Junctional rhythm Rightward axis Nonspecific ST abnormality Abnormal ECG Compared to ECG 06/25/2022 10:42:15 ST (T wave) deviation now present Early repolarization no longer present Electronically Signed On 06-26-22 13:48:19 CDT by Kishor Seo
== END 2022-06-26 08:47 ==
LOC: ER 09:41
DX: R45.851 Suicidal ideations (principal)
CPT/HCPCS: 36415; 80048; 80076; 80307; 85025; 85610; 85730; 93005; 99285; G0480

== ENCOUNTER → 2023-03-04 | Emergency (ER) | payer SELFPAY ==
[~2023-03-04] MED LIST: ONDANSETRON 4 MG (ODT) TAB ONE
[2023-03-04 11:43] LABS: SARS-CoV-2 Antigen Rapid Res Negative (Negative)
--- NOTE | 2023-03-04 12:20 | EDPHYS ---
Physician Documentation [facility] Name: Hipolito Kiran Age: 22 yrs Sex: Male : 2000 Arrival Date: 03/04/2023 Time: 10:29 Bed DX3 Private MD: ED Physician Yogi Bermeo HPI: 03/04 13:41 This 22 yrs old Male presents to ER via Ambulatory with complaints of Vomiting.sb4 13:41 The patient presents to the emergency department with vomiting, 4 times since last sb4 night. Onset: The symptoms/episode began/occurred last night. Possible causes: unknown. The symptoms are aggravated by nothing. The symptoms are alleviated by nothing. Associated signs and symptoms: The patient has no apparent associated signs or symptoms. The patient has not experienced similar symptoms in the past. The patient has not recently seen a physician. Historical: - Allergies: 11:16 No Known Allergies; ld1 - PMHx: 11:16 Herpes simplex; ld1 - Immunization history:: Adult Immunizations up to date. - Social history:: Smoking status: Patient denies any tobacco usage or history of. Patient/guardian denies using alcohol. ROS: 13:41 Constitutional: Negative for fever, chills, and weight loss, sb4 13:41 Abdomen/GI: Positive for nausea and vomiting, 13:41 All other systems are negative, Exam: 13:41 Constitutional: This is a well developed, well nourished patient who is awake, alert, sb4 and in no acute distress. Head/Face: Normocephalic, atraumatic. Eyes: Extra-ocular motions intact. Periorbital areas with no swelling, redness, or edema. ENT: Mucous membranes moist. Cardiovascular: Regular rate and rhythm with a normal S1 and S2. Respiratory: Lungs have equal breath sounds bilaterally, clear to auscultation and percussion. No rales, rhonchi or wheezes noted. No increased work of breathing, no retractions or nasal flaring. Abdomen/GI: Soft, non-tender, no distension. Skin: Warm, dry with normal turgor. Normal color with no rashes, no lesions, and no evidence of cellulitis. MS/ Extremity: Pulses equal, no cyanosis. Neurovascular intact. Full, normal range of motion. Neuro: Awake and alert, GCS 15, oriented to person, place, time, and situation. Motor strength 5/5 in all extremities. Sensory grossly intact. Vital Signs: 11:16 BP 119 / 67; Pulse 85; Resp 18; Temp 98.3(O); Pulse Ox 99% on R/A; Weight 56.7 kg; ld1 Height 5 ft. 8 in. ; Pain 0/10; 12:25 Resp 17; Temp 97.9(TE); ap3 11:16 Body Mass Index 19.01 (56.70 kg, 172.72 cm) ld1 11:16 Pain Scale: Adult ld1 MDM: 11:20 Patient medically screened. sb4 13:41 Differential diagnosis: viral gastroenteritis, covid, flu, strep. Data reviewed: vital sb4 signs, nurses notes, and as a result, I will discharge patient. Test considered but Not performed: Labs: non toxic appearing, no belly pain. Counseling: I had a detailed discussion with the patient and/or guardian regarding the historical points, exam findings, and any diagnostic results supporting the discharge/admit diagnosis, lab results, to return to the emergency department if symptoms worsen or persist or if there are any questions or concerns that arise at home. 03/04 11:18 Order name: Flu; Complete Time: 11:49 [facility] 03/04 11:18 Order name: SARS RAPID; Complete Time: 11:44 [facility] 03/04 11:18 Order name: Strep ld 03/04 11:50 Order name: Throat Culture [facility] 03/04 12:09 Order name: PO challenge; Complete Time: 12:16 sb4 Administered Medications: 11:59 Drug: Ondansetron Oral Disintegrating Tablet Oral Disintegrating Tablet 4 mg PO once ap3 Route: PO; 12:25 Follow up: Response: No adverse reaction; Nausea is decreased ap3 Disposition Summary: 03/04/23 12:19 Discharge Ordered Notes: Location: Home sb4 Problem: new sb4 Symptoms: have improved sb4 Condition: Stable sb4 Diagnosis - Noninfective gastroenteritis and colitis, unspecified sb4 Followup: sb4 - With: Emergency Department - When: As needed - Reason: Trouble breathing, Worsening of condition Discharge Instructions: - Discharge Summary Sheet sb4 - Viral Gastroenteritis, Adult sb4 - Nausea and Vomiting, Adult, [id number] sb4 Forms: - Work release form sb4 - Family Work Release sb4 - Medication Reconciliation Form sb4 - Thank You Letter sb4 - Antibiotic Education sb4 - Prescription Opioid Use sb4 - Patient Portal Instructions sb4 - Leadership Thank You Letter sb4 Prescriptions: - Zofran 4 mg Oral Tablet - take 1 tablet ORAL route every 12 hours As needed; 20 tablet; Refills: 0, sb4 Product Selection Permitted Addendum: 03/05/2023 15:37 I was immediately available for consultation during this patient's visit. I did not e c2 personally see the patient or discuss the patient with the CYDNEY. . Signatures: Dispatcher [employer] Melissa Malone RN RN ap3 Rose Stewart RN RN ld1 Nevaeh Calvin PA-C PA-C sb4 Yogi Bermeo MD MD ec2
--- NOTE | 2023-03-04 12:20 | ER ---
Nurse's Notes [facility] Name: Hipolito Kiran Age: 22 yrs Sex: Male : 2000 Arrival Date: 03/04/2023 Time: 10:29 Bed DX3 Private MD: Diagnosis: Noninfective gastroenteritis and colitis, unspecified Presentation: 03/04 11:16 Chief complaint: Patient states: Vomiting since last night. Coronavirus screen: At this ld1 time, the client does not indicate any symptoms associated with coronavirus-19. Ebola Screen: No symptoms or risks identified at this time. Initial Sepsis Screen: Does the patient meet any 2 criteria? No. Patient's initial sepsis screen is negative. Does the patient have a suspected source of infection? No. Patient's initial sepsis screen is negative. Risk Assessment: Do you want to hurt yourself or someone else? Patient reports no desire to harm self or others. Onset of symptoms was March 04, 2023. 11:16 Method Of Arrival: Ambulatory ld1 11:16 Acuity: BECK 4 ld1 Triage Assessment: 11:16 General: Appears in no apparent distress. comfortable, Behavior is calm, cooperative, ld1 appropriate for age. Pain: Denies pain. EENT: No signs and/or symptoms were reported regarding the EENT system. Neuro: Level of Consciousness is awake, alert, obeys commands, Oriented to person, place, time, situation. Cardiovascular: Capillary refill < 3 seconds Patient's skin is warm and dry. Respiratory: Airway is patent Respiratory effort is even, unlabored. GI: Abdomen is flat, non-distended, Reports nausea, vomiting. Historical: - Allergies: 11:16 No Known Allergies; ld1 - PMHx: 11:16 Herpes simplex; ld1 - Immunization history:: Adult Immunizations up to date. - Social history:: Smoking status: Patient denies any tobacco usage or history of. Patient/guardian denies using alcohol. Screenin:24 [facility] ED Fall Risk Assessment (Adult) History of falling in the last 3 months, ap3 including since admission No falls in past 3 months (0 pts). Abuse screen: Denies threats or abuse. Nutritional screening: No deficits noted. Tuberculosis screening: No symptoms or risk factors identified. Vital Signs: 11:16 BP 119 / 67; Pulse 85; Resp 18; Temp 98.3(O); Pulse Ox 99% on R/A; Weight 56.7 kg; ld1 Height 5 ft. 8 in. ; Pain 0/10; 12:25 Resp 17; Temp 97.9(TE); ap3 11:16 Body Mass Index 19.01 (56.70 kg, 172.72 cm) ld1 11:16 Pain Scale: Adult ld1 ED Course: 10:32 Patient arrived in ED. rg4 10:37 Nevaeh Calvin [facility]-C [facility]. sb4 10:37 Yogi Bermeo MD is Attending Physician. sb4 11:16 Arm band placed on right wrist. ld1 11:17 Triage completed. ld1 11:23 Strep Sent. ld1 11:23 SARS RAPID Sent. ld1 11:23 Flu Sent. ld1 12:24 No provider procedures requiring assistance completed. Patient did not have IV access ap3 during this emergency room visit. 12:25 Patient has correct armband on for positive identification. Adult w/ patient. Provided ap3 Education on: discharge instructions. Administered Medications: 11:59 Drug: Ondansetron Oral Disintegrating Tablet Oral Disintegrating Tablet 4 mg PO once ap3 Route: PO; 12:25 Follow up: Response: No adverse reaction; Nausea is decreased ap3 Medication: 12:25 VIS not applicable for this client. ap3 Outcome: 12:19 Discharge ordered by . sb4 12:24 Discharged to home ambulatory, with family, ap3 12:24 Condition: good 12:24 Discharge instructions given to patient, Instructed on discharge instructions, follow up and referral plans. medication usage, Demonstrated understanding of instructions, follow-up care, medications, Prescriptions given X 1, 12:26 Patient left the ED. ap3 Signatures: Kyra Malave rg4 Melissa Loredo RN RN ap3 Rose Stewart RN RN ld1 Nevaeh Calvin PA-C PA-C sb4
[2023-03-04 13:43] VITALS: BP 119/67; TEMP 97.9; O2SAT 99
== END ==
LOC: ER 10:29
DX: K52.9 Noninfective gastroenteritis and colitis, unspecified (principal); Z11.52 Encounter for screening for COVID-19
CPT/HCPCS: 36415; 87070; 87081; 87804; 87811; 99283; Q0162

== ENCOUNTER 2023-05-22 22:56 | Emergency (ER) | payer SELFPAY ==
--- OUTSIDE RECORDS SUMMARY | 2023-05-22 22:58 | XMS REPORT | Continuity of Care Document ---
Author Name Unknown Address [address] [place] [address] [facility] Address [address] [place] [address] Care Team Providers Care Print Project Manager Name Role Phone YANCY CANO Primary Care Physician Unava CLARITA Stover Attending Clinician Unavailable Clarita Salguero MD Attending Clinician [phone] Andrea Oliva MD Attending Clinician [phone] ANDREA OLIVA Attending Clinician Unavailable Yancy Gonzalez Attending Clinician + [phone] YANCY WHITLEY Attending Clinician Unavail able Doctor Unassigned, [place] Attending Clinician U Gemini Alejandro Attending Clinician [phone] Lab, Adc Fam Pob I Attending Clinician Unavailab GEMINI Ojeda Attending Clinician Unavailable Payers Payer Name Policy Type Policy Number Effective Date Expirati on Date Source HIM TOÑA FROM [facility] [id number] 2022 00:00:00 [facility] [id number] 2014 00:00:00 Problems Condition Name Condition Details Condition Category Status Onset Date Resolution Date Last Treatment Date Treating Clinician Comments Source No known active problems No known active problems Disease [facility] Allergies, Adverse Reactions, Alerts Allergy Name Allergy Type Status Severity Reaction(s) Onset Date Inactive Date Treating Clinician Comments Source Amoxicil gilles-Pot Clavulan ate Propensi ty to adverse reaction s Active Unknown - See comments 05-07 00:00: 00 [facility] AMOXICIL GILLES-POT CLAVULAN ATE DRUG Active Unknown-Cmnt 05-07 00:00: 00 [facility] Social History Social Habit Start Date Stop Date Quantity Comments Source Exposure to SARS-CoV-2 (event) Not sure [facility] of [facility] function 2020-07-26 00:00:00 2020-07-26 00:00:00 [facility] Tobacco use and exposure 2017-03-25 00:00:00 2017-03-25 00:00:00 Smokeless tobacco non-user [facility] Sex Assigned At 2000 00:00:00 2000 00:00:00 [facility] Smoking Status Start Date Stop Date Source Never smoked tobacco [facility] Medications Ordered Medication Name Filled Medication Name Start Date Stop Date Current Medication? Ordering Clinician Indication Dosage Frequency Signature (SIG) Comments Components Source ondansetron (ZOFRAN (PF)) injection 4 mg 2022-02 11:15: 00 02-04 11:10 :00 No 4mg 4 mg, Slow IV Push, ONCE, 1 dose, On Sat02/04/23 at 0515, HELIO [facility] NaCl 0.9% (NS) bolus infusion 1,000 mL 2022-02 10:45: 00 02-04 10:52 :00 No 1000mL at 999 mL/hr, 1,000 mL, IV Infusion, ONCE, 1 dose, On Sat02/04/23 at 0445, STAT [facility] dicyclomine 20 mg tablet 2022-02 00:00: 00 Yes [id number] 20mg Take 1 tablet by mouth 4 (four) times daily. [facility] ondansetron 4 mg disintegrat ing tablet 2022-02 00:00: 00 Yes [id number] 4mg Take 1 tablet by mouth every 4 (four) hours as needed for Nausea and Vomiting (N/V). [facility] No known medications No Un tamra [facility] No known medications No Un tamra ity [facility] No known medications No Un tamra ity [facility] No known medications No Un tamra ity [facility] No known medications No Un tamra [facility] Immunizations Ordered Immunization Name Filled Immunization Name Date Status Comments Source Meningococcal Polysaccharide (groups A, C, Y and W-135) conjugate vaccine (MCV4P) 2020-07-26 00:00:00 Completed [facility] Meningococcal B, OMV 2020-07-26 00:00:00 Completed [facility] Meningococcal Polysaccharide (groups A, C, Y and W-135) conjugate vaccine (MCV4P) 2020-07-26 00:00:00 Completed [facility] Meningococcal B, OMV 2020-07-26 00:00:00 Completed [facility] Meningococcal Polysaccharide (groups A, C, Y and W-135) conjugate vaccine (MCV4P) 2020-07-26 00:00:00 Completed [facility] Meningococcal B, OMV 2020-07-26 00:00:00 Completed [facility] Meningococcal Polysaccharide (groups A, C, Y and W-135) conjugate vaccine (MCV4P) 2020-07-26 00:00:00 Completed [facility] Meningococcal B, OMV 2020-07-26 00:00:00 Completed [facility] Meningococcal Polysaccharide (groups A, C, Y and W-135) conjugate vaccine (MCV4P) 2020-07-26 00:00:00 Completed [facility] Meningococcal B, OMV 2020-07-26 00:00:00 Completed [facility] Meningococcal Polysaccharide (groups A, C, Y and W-135) conjugate vaccine (MCV4P) Unknown Completed [facility] Meningococcal B, OMV Unknown Completed [facility] Vital Signs Vital Name Observation Time Observation Value Comments S ource Diastolic blood pressure 2023-02-04 12:00:00 69 mm[Hg] [facility] Heart rate 2023-02-04 12:00:00 68 /min [facility] Oxygen saturation in Arterial blood by Pulse oximetry 2023-02-04 12:00:00 99 /min [facility] Systolic blood pressure 2023-02-04 12:00:00 117 mm[Hg] [facility] Body temperature 2023-02-04 09:19:00 36.72 Valorie [facility] Respiratory rate 2023-02-04 09:19:00 16 /min [facility] Body height 2023-02-04 09:19:00 172.7 cm [facility] Body weight 2023-02-04 09:19:00 49.669 kg [facility] BMI 2023-02-04 09:19:00 16.65 kg/m2 [facility] Systolic blood pressure 2020-07-26 13:10:00 112 mm[Hg] [facility] Diastolic blood pressure 2020-07-26 13:10:00 68 mm[Hg] [facility] Heart rate 2020-07-26 13:10:00 72 /min [facility] Body temperature 2020-07-26 13:10:00 36.61 Valorie [facility] Respiratory rate 2020-07-26 13:10:00 17 /min [facility] Body height 2020-07-26 13:10:00 169.5 cm [facility] Body weight 2020-07-26 13:10:00 49.499 kg [facility] BMI 2020-07-26 13:10:00 17.23 kg/m2 [facility] Oxygen saturation in Arterial blood by Pulse oximetry 2020-07-26 13:10:00 100 /min [facility] Procedures Procedure Date / Time Performed Performing Clinician Source URINALYSIS 2023-02-04 10:41:00 Clarita Salguero [facility] COMP. METABOLIC PANEL (08642) 2023-02-04 09:41:00 Clarita Salguero [facility] CBC WITH DIFF 2023-02-04 09:41:00 Clarita Salguero [facility] RAPID INFLUENZA A/B 2023-02-04 09:41:00 Allen Salguero [facility] COVID-19 (ID NOW RAPID TESTING) 2023-02-04 09:41:00 Clarita Salguero [facility] NOTICE OF PRIVACY PRACTICES 2023-02-04 09:13:47 Doctor Unassigned, [place] [facility] CONSENT/REFUSAL FOR DIAGNOSIS AND TREATMENT 2023-02-04 09:12:53 Doctor Unassigned, [place] [facility] MENACTRA (MCV4-D) VACCINE 2020-07-26 13:36:46 Mazariegos Yancy [facility] MENINGOCOCCAL B VACCINE, OMV, 2 DOSE, IM 2020-07-26 13:36:46 Whitley Yancy [facility] NO SHOW OR MISSED APPOINTMENT POLICY ACKNOWLEDGEMENT 2020-07-26 13:02:26 Doctor Unassigned, [place] [facility] Encounters Start Date/Time End Date/Time Encounter Type Admission Type Attending [facility] Care Department Encounter ID Source 2023-02-04 03:21:00 2023-02-04 06:07:00 Emergency X CLARITA SALGUERO [facility] ERT [id number] [facility] 2023-02-04 03:21:00 2023-02-04 06:07:00 Emergency Clarita Salguero [facility] 1.2840.114 350.1.13.10 4.2.7.2.686 [id number] [facility] 2022-06-26 09:25:00 2022-06-26 23:59:00 Hospital Encounter Andrea Oliva [facility] [id number] 350.1.13.10 4.2.7.2.686 [id number] [facility] 2022-06-26 00:00:00 2022-06-26 23:59:00 Outpatient R ANDREA OLIVA [facility] NUT [id number] [facility] 2020-07-27 00:00:00 2020-07-27 00:00:00 Telephone Yancy Whitley [facility] [id number] 350.1.13.10 4.2.7.2.686 [id number] [facility] 2020-07-26 08:03:03 2020-07-26 08:55:46 [facility] 1.114 350.1.13.10 4.2.7.2.686 [id number] [facility] 2020-07-26 08:00:00 2020-07-26 08:00:00 Outpatient R ANGI, [facility] [id number] [facility] 2020-07-26 00:00:00 2020-07-26 00:00:00 Orders Only Doctor Unassigned, [place] [facility] 1.114 350.1.13.10 4.2.7.2.686 [id number] [facility] 2020-07-26 00:00:00 2020-07-26 00:00:00 Letter (Out) Angi, [facility] 1.114 350.1.13.10 4.2.7.2.686 [id number] [facility] 2020-05-13 09:30:00 2020-05-13 09:30:00 Outpatient [facility] [id number] [facility] 2019-11-14 00:00:00 2019-11-14 00:00:00 Letter (Out) Gemini Augustin [facility] 1.114 350.1.13.10 4.2.7.2.686 [id number] [facility] 2019-11-13 13:40:00 2019-11-13 13:40:00 Outpatient R [facility] [id number] [facility] 2019-11-13 13:01:30 2019-11-13 13:21:30 Laboratory Only [facility], [facility] 1.114 350.1.13.10 4.2.7.2.686 [id number] [facility] 2019-11-13 11:40:00 2019-11-13 11:40:00 Outpatient Ryder GEMINI AUGUSTIN [facility] [id number] [facility] Results Test Description Test Time Test Comments Results Result Co mments Source [facility] WITH RDMI5077-09-16 09:53:47* Test Item Value Reference Range Interpretation Comme nts WBC (test code = 6690-2) 9.15 See_Comment [Automated messa ge] The system which generated this result transmitted reference range: 4.20 - 10.70 10*3/?L. The reference range was not used to interpret this result as normal/abnormal. RBC (test code = 789-8) 4.61 See_Comment [Automated messa ge] The system which generated this result transmitted reference range: 4.26 - 5.52 10*6/?L. The reference range was not used to interpret this result as normal/abnormal. HGB (test code = 718-7) 14.8 g/dL 12.2-16.4 HCT (test code = 4544-3) 42.4 % 38.4-49.3 MCV (test code = 787-2) 92.0 fL 81.7-95.6 MCH (test code = 785-6) 32.1 pg 26.1-32.7 MCHC (test code = 786-4) 34.9 g/dL 31.2-35.0 RDW-SD (test code = 78196-2) 41.3 fL 38.5-51.6 RDW-CV (test code = 788-0) 12.4 % 12.1-15.4 PLT (test code = 777-3) 220 See_Comment [Automated messa ge] The system which generated this result transmitted reference range: 150 - 328 10*3/?L. The reference range was not used to interpret this result as normal/abnormal. MPV (test code = 93777-7) 10.4 fL 9.8-13.0 NRBC/100 WBC (test code = 3767065688) 0.0 See_Comment [Automated me ssage] The system which generated this result transmitted reference range: 0.0 - 10.0 /100 WBCs. The reference range was not used to interpret this result as normal/abnormal. NRBC x10^3 (test code = 4354546854) See_Comment [Automated messa ge] The system which generated this result transmitted reference range: 10*3/?L. The reference range was not used to interpret this result as normal/abnormal. GRAN MAT (NEUT) % (test code = 770-8) 82.3 % IMM GRAN % (test code = 9988710033) 0.20 % LYMPH % (test code = 736-9) 9.0 % MONO % (test code = 5905-5) 7.8 % EOS % (test code = 713-8) 0.5 % BASO % (test code = 706-2) 0.2 % GRAN MAT x10^3(ANC) (test code = 7135279988) 7.53 10*3/uL 1.99-6.95 H IMM GRAN x10^3 (test code = 8583768502) 0.00-0.06 LYMPH x10^3 (test code = 731-0) 0.82 10*3/uL 1.09-3.23 L MONO x10^3 (test code = 742-7) 0.71 10*3/uL 0.36-1.02 EOS x10^3 (test code = 711-2) 0.05 10*3/uL 0.06-0.53 L BASO x10^3 (test code = 704-7) 0.01-0.09 Lab Interpretation (test code = 22152-8) Abnormal [facility] Notes Date/Time Note Provider Source 2023-02-04 06:06:48 8ZDro4p8SmAHNnnDWxq3 erWnW0pdGQNWs/ ElnYHs9HoMjwhH7bVnO4TSBt7w+7LG84212022T06:06:48 Pt given printed and verbal discharge instructions regarding vomiting and diarrhea, encouraged hydration,Prescriptions providedPt verbalized understanding of instructions, pt awake alert oriented, resp reg unlabored, skin w/d, color appropriate for race, moves all ext well,pt encouraged to follow up with pcp.Advised to seek medical attention for new/prolonged/worsening of symptoms.No adverse reaction to meds given in ER noted upon dischargePIV d'cd, dressing to site, catheter in tact.Awake, alert oriented, resp reg unlabored, skin w/d, pt leaving amb with steady gait, in no apparent distress. 93045-9Bukpdtnve department KhfxFH2336-50-13H83:07:45[facility] [id number] .2.611976|[id number] for patient iiwe91376-5JnwzURXTEOFIANBBupfryxa d C-CDA narrative textUT[address] StreetWc[id number] 51QOBQTLPARPTTPYWKCLHFYR4698-49-69 T06:07:451.2.840.162639.1.72.3.15| 1.2.840.558363.1.13.104.2.7.2.7278 [id number] [facility] 2023-02-04 03:17:47 WfL6FqjiGW2qT3c0BS5c morfjvJzoBJ/lV Ye+TgNyYvD1iE7AnqHGmxf+5ysPZvJ2395 -12-25T03:17:47 Pt arrived ambulatory with complaints of nausea throughout the day and then woke up a few hours ago with vomiting and diarrhea x 3 episodes 47396-6Mkceeurwo department Triage biruPD8587-63-72C50:19:19[facility] Triage noteTXT1.2.840.148459.1.13.104.2.7 .2.864061|[id number] for patient aqrv24065-3Vyhqkulve department NoteLNNARRATIVEFormatted C-CDA narrative [id number] D Roman RN[address] Vi[id number] 94USLIZAYAWDGNMPSZNJWKKR9863-11-71 T03:19:191.2.840.388427.1.72.3.15| 1.2.840.819131.1.13.104.2.7.2.7278 [id number] Ronda Gonsalves RN [facility]"
[2023-05-22] MEDS ORDERED: IBUPROFEN 400 MG TAB ONE (23:11)
--- NOTE | 2023-05-23 00:01 | EDPHYS ---
Physician Documentation [facility] Name: Hipolito Kiran Age: 22 yrs Sex: Male : 2000 Arrival Date: 05/22/2023 Time: 22:56 Bed IW1 Private MD: ED Physician Magno Swenson HPI: 05/21 23:27 This 22 yrs old Male presents to ER via Ambulatory with complaints of Finger kb Injury. 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 Denies any other injuries. . Historical: - Allergies: 23:07 No Known Allergies; km8 - Home Meds: 23:07 None [Active]; km8 - PMHx: 23:07 Herpes simplex; km8 - PSHx: 23:07 None; km8 - Immunization history:: Adult Immunizations up to date. - Infectious Disease History:: Denies. - Social history:: Smoking status: Reported history of juuling and/or vaping. Patient uses alcohol, occasionally. Patient/guardian denies using street drugs. ROS: 23:26 Constitutional: As per HPI kb Exam: 23:26 Constitutional: This is a well developed, well nourished patient who is awake, alert, kb and in no acute distress. Head/Face: Normocephalic, atraumatic. ENT: Moist Mucous membranes Cardiovascular: Regular rate Respiratory: Respirations even and unlabored. No increased work of breathing. Talking in full sentences Skin: Warm, dry with normal turgor. Normal color. Neuro: Awake and alert, GCS 15, oriented to person, place, time, and situation. Moves all extremities. Normal gait. 23:26 Musculoskeletal/extremity: Extremities: grossly normal except: noted in the right thumb: decreased ROM, pain, swelling, tenderness, ROM: limited active range of motion due to pain, in the right thumb, Circulation is intact in all extremities. Sensation intact. Vital Signs: 23:05 BP 132 / 84; Pulse 101; Resp 16; Temp 97.8(TE); Pulse Ox 98% on R/A; Weight 52.16 kg; km8 Height 5 ft. 8 in. ; Pain 09/20; 05/22 00:20 BP 130 / 80; Pulse 98; Resp 16; Temp 97.4; Pulse Ox 98% on R/A; [facility] 05/21 23:05 Body Mass Index 17.49 (52.16 kg, 172.72 cm) [facility] 05/21 23:05 Pain Scale: Adult 8 Chandan Coma Score: 05/21 23:05 Eye Response: spontaneous(4). Motor Response: obeys commands(6). Verbal Response: km8 oriented(5). Total: 15. MDM: 23:09 Patient medically screened. 23:26 Differential diagnosis: fracture, contusion. Data reviewed: vital signs, nurses notes. 05/22 00:00 Counseling: I had a detailed discussion with the patient and/or guardian regarding the kb historical points, exam findings, and any diagnostic results supporting the discharge/admit diagnosis, radiology results, the need for outpatient follow up, a family practitioner, to return to the emergency department if symptoms worsen or persist or if there are any questions or concerns that arise at home. 05/21 23:09 Order name: Hand Right 3 View XRAY kb Administered Medications: 05/21 23:12 Drug: Ibuprofen PO 400 mg PO once Route: PO; [facility] 05/22 00:21 Follow up: Response: No adverse reaction [facility] Disposition: 07:23 Co-signature as Attending Physician, Magno Swenson MD I agree with the assessment sp4 and plan of care. I reviewed the patient's care provided by the Advanced Practice Provider and agree with the diagnosis and treatment plan. Disposition Summary: 05/23/23 00:00 Discharge Ordered Notes: Location: Home kb Condition: Stable kb Diagnosis - Contusion of right thumb without damage to nail kb Followup: kb - With: Emergency Department - When: As needed - Reason: Worsening of condition Followup: kb - With: Private Physician - When: 2 - 3 days - Reason: Recheck today's complaints, Continuance of care, Re-evaluation by your physician Discharge Instructions: - Discharge Summary Sheet kb - Contusion, Yfmw-zu-Ftlv kb Forms: - Medication Reconciliation Form kb - Thank You Letter kb - Antibiotic Education kb - Prescription Opioid Use kb - Patient Portal Instructions kb - Leadership Thank You Letter kb Signatures: Dispatcher [employer] EDMell Mandel, YANCI STEPHENS-Magno Jordan MD MD sp4 Alona Rogel RN RN km8 Corrections: (The following items were deleted from the chart) 05/21 23:10 23:10 Hand Right 3 View+RAD.RAD.BRZ ordered. EDMS EDMS
--- NOTE | 2023-05-23 00:01 | ER ---
Nurse's Notes [facility] Name: Hipolito Kiran Age: 22 yrs Sex: Male : 2000 Arrival Date: 05/22/2023 Time: 22:56 Bed IW1 Private MD: Diagnosis: Contusion of right thumb without damage to nail Presentation: 05/21 23:05 Chief complaint: Patient states: about 30 mins ago slammed right thumb into car door, km8 now having pain, swelling, and bruising noted. Coronavirus screen: Client denies travel out of the [place] in the last 14 days. Ebola Screen: No symptoms or risks identified at this time. Initial Sepsis Screen: Does the patient meet any 2 criteria? HR > 90 bpm. No. Patient's initial sepsis screen is negative. Does the patient have a suspected source of infection? No. Patient's initial sepsis screen is negative. Risk Assessment: Do you want to hurt yourself or someone else? Patient reports no desire to harm self or others. Onset of symptoms was May 22, 2023 at 22:30. 23:05 Method Of Arrival: Ambulatory km8 23:05 Acuity: BECK 4 km8 Triage Assessment: 23:07 General: Appears in no apparent distress. uncomfortable, Behavior is calm, cooperative, km8 appropriate for age. Pain: Complains of pain in right thumb Pain currently is 8 out of 10 on a pain scale. Quality of pain is described as throbbing. EENT: No signs and/or symptoms were reported regarding the EENT system. Neuro: Level of Consciousness is awake, alert, obeys commands, Oriented to person, place, time, situation. Cardiovascular: Denies chest pain, shortness of breath, Patient's skin is warm and dry. Respiratory: Airway is patent Respiratory effort is even, unlabored, Respiratory pattern is regular, symmetrical. GI: No signs and/or symptoms were reported involving the gastrointestinal system. : No signs and/or symptoms were reported regarding the genitourinary system. Derm: Skin is intact, is healthy with good turgor, Skin is dry, Skin is pink, warm \T\ dry. normal, Skin temperature is warm Bruising that is dark purple. Musculoskeletal: Range of motion: limited in right thumb Swelling present in right thumb. Injury Description: Crush injury sustained to right thumb was sustained 30-60 minutes ago. Historical: - Allergies: : No Known Allergies; 8 - Home Meds: : None [Active]; 8 - PMHx: 23: Herpes simplex; 8 - PSHx: 23: None; 8 - Immunization history:: Adult Immunizations up to date. - Infectious Disease History:: Denies. - Social history:: Smoking status: Reported history of juuling and/or vaping. Patient uses alcohol, occasionally. Patient/guardian denies using street drugs. Screenin:05 [facility] ED Fall Risk Assessment (Adult) History of falling in the last 3 months, [facility] including since admission No falls in past 3 months (0 pts) Confusion or Disorientation No (0 pts) Intoxicated or Sedated No (0 pts) Impaired Gait No (0 pts) Mobility Assist Device Used No (0 pt) Altered Elimination No (0 pt) Score/Fall Risk Level 0 - 2 = Low Risk Oriented to surroundings, Maintained a safe environment, Educated pt \T\ family on fall prevention, incl call for assistance when getting out of bed, Assessed \T\ reinforced patient's understanding of fall precautions. Abuse screen: Denies threats or abuse. Denies injuries from another. Nutritional screening: No deficits noted. Tuberculosis screening: No symptoms or risk factors identified. Assessment: 23:05 Reassessment: see triage assessment. [facility] 05/22 00:20 Reassessment: Patient appears in no apparent distress at this time. No changes from [facility] previously documented assessment. Patient and/or family updated on plan of care and expected duration. Pain level reassessed. Patient is alert, oriented x 3, equal unlabored respirations, skin warm/dry/pink. Vital Signs: 05/21 23: BP 132 / 84; Pulse 101; Resp 16; Temp 97.8(TE); Pulse Ox 98% on R/A; Weight 52.16 kg; [facility] Height 5 ft. 8 in. ; Pain 09/20; 05/22 00:20 BP 130 / 80; Pulse 98; Resp 16; Temp 97.4; Pulse Ox 98% on R/A; [facility] 05/21 23:05 Body Mass Index 17.49 (52.16 kg, 172.72 cm) [facility] 05/21 23:05 Pain Scale: Adult km8 [place] Coma Score: 05/21 23:05 Eye Response: spontaneous(4). Motor Response: obeys commands(6). Verbal Response: km8 oriented(5). Total: 15. ED Course: 22:56 Patient arrived in ED. jj6 23:05 Patient has correct armband on for positive identification. Adult w/ patient. km8 23:07 Triage completed. km8 23:07 Arm band placed on right wrist. Patient placed in waiting room, Patient notified of km8 wait time. 23:09 [facility] kb 23:09 Magno Swenson MD is Attending Physician. kb 23:12 Alona Rogel, RN is Primary Nurse. km8 23:32 Hand Right 3 View XRAY In Process Unspecified. EDMS 05/22 00:21 Provided Education on: d/c teaching. km8 00:21 No provider procedures requiring assistance completed. Patient did not have IV access km8 during this emergency room visit. Administered Medications: 05/21 23:12 Drug: Ibuprofen PO 400 mg PO once Route: PO; km8 05/22 00:21 Follow up: Response: No adverse reaction km8 Medication: 05/21 23:05 VIS not applicable for this client. km8 Outcome: 05/22 00:00 Discharge ordered by . kb 00:21 Discharged to home ambulatory, km8 00:21 Condition: good 00:21 Discharge instructions given to patient, Instructed on discharge instructions, follow up and referral plans. Demonstrated understanding of instructions, follow-up care, 00:21 Patient left the ED. km8 Signatures: Dispatcher [employer] EDNM Mell Burns FNP-C FNP-Pearl Hazel jj6 Alnoa Rogel, RN RN km8
[2023-05-23 04:04] VITALS: BP 130/80; TEMP 97.4; O2SAT 98
--- NOTE | 2023-05-23 13:23 | RAD REPORT ---
EXAM DESCRIPTION: RAD - Hand Right 3 View - 05/23/2023 6:02 am CLINICAL HISTORY: The patient is 22 years old and is Male; PAIN Bed Name: IW1 TECHNIQUE: Frontal, lateral and oblique views of the right hand. COMPARISON: No relevant prior studies available. FINDINGS: BONES/JOINTS: No acute fracture. No suspicious lytic or blastic bone lesions. No subluxa tion or dislocation. Irregular appearance of the right 5th metacarpal diaphysis suggesting remote hea led fracture. SOFT TISSUES: Unremarkable No radiopaque foreign body. IMPRESSION: No acute findings in the right hand. Electronically signed by: Ward Mckeon MD 05/22/2023 11:43 PM CDT Due to temporary technical issues with the PACS/Fluency reporting system, reports are being signed by the in house radiologist without review as a courtesy to ensure prompt reporting. The interpreting r adiologist is fully responsible for the content of the report.
== END 2023-05-23 00:21 | disposition home or self-care (01) ==
LOC: ER 22:56
DX: S60.011A Contusion of right thumb without damage to nail, initial encounter (principal)
CPT/HCPCS: 99283

== ENCOUNTER 2023-08-07 23:01 | Emergency (ER) | payer SELFPAY ==
[2023-08-07] MEDS ORDERED: ONDANSETRON 4 MG/2 ML VIAL ONE (23:54)
[2023-08-07] MEDS ORDERED: NA CHLORIDE 0.9% 1,000 ML ONE (23:54)
[2023-08-07] MEDS ORDERED: KETOROLAC 30 MG/ML INJ ONE (23:54)
[2023-08-08 00:26] LABS: Absolute Monocytes 0.8 K/uL (0.1-1.3); Absolute Neutrophil 6.2 K/uL (1.8-8.0); Basophils % 0.3 % (0-1.3); Eosinophils % 0.3 % (0-4.4); Hematocrit 43.5 % (39.6-49.0); Hemoglobin 15.1 g/dL (13.6-17.9); Lymphocytes % 12.1 % (15.3-44.8); MCH 31.8 pg (27.0-35.0); MCHC 34.6 g/dL (32.0-36.0); MCV 91.9 fL (80-100); MPV 8.8 fL (7.6-11.3); Monocytes % 10.1 % (3.3-12.3); Neutrophils % 77.2 % (41.7-73.7); Nucleated Red Blood Cells % 0.1 % (0-0); Platelets 221 thou/uL (152-406); RBC Red Blood Cell Count 4.73 M/uL (4.33-5.43); Red Cell Distribution Width 12.7 % (12.1-15.2)
[2023-08-08 00:43] LABS: Anion Gap 8.4 mEq/L (5.0-15.0); Bilirubin Total 0.4 mg/dL (0.2-1.0); Potassium 3.4 mEq/L (3.5-5.1)
--- NOTE | 2023-08-08 00:58 | EDPHYS ---
Physician Documentation [facility] Name: Hipolito Kiran Age: 22 yrs Sex: Male : 2000 Arrival Date: 08/07/2023 Time: 23:01 Bed 17 Private MD: ED Physician Dianna Ballard HPI: 08/06 23:24 This 22 yrs old Male presents to ER via Ambulatory with complaints of Back kb Pain, Vomiting - Migraine. 23:24 Pt is a 22 year old male who presents for lower abd pain and low back pain that started kb 3 days ago with nausea and vomiting that started today. Denies fever. Reports diarrhea. Unable to tolerate po intake today. Historical: - Allergies: 23:22 No Known Allergies; as6 - PMHx: 23:22 Herpes simplex; as6 - PSHx: 23:22 None; as6 - Immunization history:: Adult Immunizations up to date. - Infectious Disease History:: Denies. - Social history:: Smoking status: Reported history of juuling and/or vaping. ROS: 23:24 Constitutional: As per HPI kb Exam: 23:24 Constitutional: This is a well developed, well nourished patient who is awake, alert, kb and in no acute distress. Head/Face: Normocephalic, atraumatic. ENT: Moist Mucous membranes Cardiovascular: Regular rate Respiratory: Respirations even and unlabored. No increased work of breathing. Talking in full sentences Skin: Warm, dry with normal turgor. Normal color. MS/ Extremity: Pulses equal, no cyanosis. Neurovascular intact. Full, normal range of motion. Neuro: Awake and alert, GCS 15, oriented to person, place, time, and situation. Moves all extremities. Normal gait. 23:24 Abdomen/GI: Inspection: abdomen appears normal, Bowel sounds: normal, Palpation: soft, in all quadrants, mild abdominal tenderness, in the left upper quadrant and left lower quadrant, 23:24 Back: CVA tenderness, that is mild, is noted bilaterally, Vital Signs: 23:21 BP 128 / 68; Pulse 72; Resp 18; Temp 98; Pulse Ox 99% ; Weight 52.16 kg; Height 5 ft. 8 as6 in. ; Pain 7/10; 08/07 00:39 BP 129 / 49; Pulse 74; Pulse Ox 100% on R/A; Pain 3/10; tm6 01:07 BP 129 / 49; Pulse 68; Resp 19; Temp 97.5; Pulse Ox 100% on R/A; Pain 0/10; tm6 08/06 23:21 Body Mass Index 17.49 (52.16 kg, 172.72 cm) as6 08/06 23:21 Pain Scale: Adult as6 08/07 00:39 Pain Scale: Adult tm6 01:07 Pain Scale: Adult tm6 MDM: 08/06 23:22 Patient medically screened. kb 23:24 Data reviewed: vital signs, nurses notes. kb 08/07 00:54 Differential diagnosis: bowel obstruction, diverticulitis, non-specific abd pain. kb Counseling: I had a detailed discussion with the patient and/or guardian regarding the historical points, exam findings, and any diagnostic results supporting the discharge/admit diagnosis, lab results, radiology results, the need for outpatient follow up, a family practitioner, to return to the emergency department if symptoms worsen or persist or if there are any questions or concerns that arise at home. Response to treatment: the patient's symptoms have markedly improved after treatment. 08/06 23: Order name: CBC with Diff; Complete Time: 00:35 kb 08/06 23: Order name: CMP; Complete Time: 00:53 kb 08/06 22: Order name: Lipase; Complete Time: 00:53 kb 08/06 23: Order name: CT Abd/Pelvis - IV Contrast Only kb 08/06 23:27 Order name: IV Saline Lock; Complete Time: 23:49 kb 08/06 22: Order name: Labs collected and sent; Complete Time: 23:49 kb Administered Medications: 00:02 Drug: NS 0.9% IV 1000 ml IV at 1 bolus Per protocol; 1000 mL bolus Route: IV; Rate: 1 tm6 bolus; Site: right antecubital; 00:59 Follow up: IV Status: Completed infusion; IV Intake: 1000ml tm6 00:02 Drug: Ondansetron IVP 4 mg IVP once; over 2 minutes Route: IVP; Site: right antecubital;tm6 00:59 Follow up: Response: Marked relief of symptoms tm6 00:02 Drug: Ketorolac IVP 15 mg IVP once Route: IVP; Site: right antecubital; tm6 00:59 Follow up: Response: Pain is decreased tm6 01:07 Drug: Ciprofloxacin PO 500 mg PO once Route: PO; tm6 01:07 Drug: metroNIDAZOLE PO 500 mg PO once Route: PO; tm6 Disposition Summary: 08/08/23 00:57 Discharge Ordered Notes: Location: Home kb Condition: Stable kb Diagnosis - Colitis kb Followup: kb - With: Emergency Department - When: As needed - Reason: Worsening of condition Followup: kb - With: Private Physician - When: 2 - 3 days - Reason: Recheck today's complaints, Continuance of care, Re-evaluation by your physician Discharge Instructions: - Discharge Summary Sheet kb - Colitis kb Forms: - Medication Reconciliation Form kb - Antibiotic Education kb - Prescription Opioid Use kb - Patient Portal Instructions kb - Leadership Thank You Letter kb Prescriptions: - Cipro 500 mg Oral Tablet - take 1 tablet ORAL route every 12 hours for 10 days; 20 tablet; Refills: 0, kb Product Selection Permitted - Flagyl 500 mg Oral Tablet - take 1 tablet ORAL route every 8 hours for 10 days; 30 tablet; Refills: 0, kb Product Selection Permitted - Zofran 4 mg Oral tablet - take 1 tablet ORAL route every 6 hours As needed; 12 tablet; Refills: 0, kb Product Selection Permitted Signatures: Dispatcher [employer] EDMS Mell Burns, FAMILY ENGAGEMENT SPECIALIST-C FAMILY ENGAGEMENT SPECIALIST-Jimmie Gutierrez RN RN as6 Oracio Block RN RN tm6 Corrections: (The following items were deleted from the chart) 08/06 23:27 23:27 CBC+H.LAB.BRZ ordered. EDMS EDMS 23:27 23:27 COMPREHENSIVE METABOLIC PANEL+C.LAB.BRZ ordered. EDMS EDMS 23:27 23:27 LIPASE+C.LAB.BRZ ordered. EDMS EDMS 23:27 23:27 Urinalysis+U.LAB.BRZ ordered. EDMS EDMS 23:27 23:27 Abdomen Pelvis W Con+CT.RAD.BRZ ordered. EDMS EDMS
--- NOTE | 2023-08-08 00:58 | ER ---
Nurse's Notes [facility] Name: Hipolito Kiran Age: 22 yrs Sex: Male : 2000 Arrival Date: 08/07/2023 Time: 23:01 Bed 17 Private MD: Diagnosis: Colitis Presentation: 08/06 23:22 Chief complaint: Patient states: n/v, headache, body aches x3 days. Coronavirus screen: as6 At this time, the client does not indicate any symptoms associated with coronavirus-19. Ebola Screen: No symptoms or risks identified at this time. Initial Sepsis Screen: Does the patient meet any 2 criteria? No. Patient's initial sepsis screen is negative. Does the patient have a suspected source of infection? No. Patient's initial sepsis screen is negative. Risk Assessment: Do you want to hurt yourself or someone else? Patient reports no desire to harm self or others. Onset of symptoms was August 04, 2023. 23:22 Acuity: BECK 3 as6 23:22 Method Of Arrival: Ambulatory as6 Historical: - Allergies: 23:22 No Known Allergies; as6 - PMHx: 23:22 Herpes simplex; as6 - PSHx: 23:22 None; as6 - Immunization history:: Adult Immunizations up to date. - Infectious Disease History:: Denies. - Social history:: Smoking status: Reported history of juuling and/or vaping. Screenin/27 00:35 [facility] ED Fall Risk Assessment (Adult) History of falling in the last 3 months, tm6 including since admission No falls in past 3 months (0 pts) Confusion or Disorientation No (0 pts) Intoxicated or Sedated No (0 pts) Impaired Gait No (0 pts) Mobility Assist Device Used No (0 pt) Altered Elimination No (0 pt) Score/Fall Risk Level 0 - 2 = Low Risk Oriented to surroundings, Maintained a safe environment, Educated pt \T\ family on fall prevention, incl call for assistance when getting out of bed. Abuse screen: Denies threats or abuse. Denies injuries from another. Nutritional screening: No deficits noted. Tuberculosis screening: No symptoms or risk factors identified. Assessment: 00:35 General: Appears in no apparent distress. uncomfortable, Behavior is calm, cooperative. tm6 Pain: Complains of pain in face and left lower quadrant and left upper quadrant Pain does not radiate. Quality of pain is described as aching, Also complains of nausea. Neuro: Level of Consciousness is awake, alert, obeys commands, Oriented to person, place, time, situation, Reports headache. Cardiovascular: No deficits noted. Patient's skin is warm and dry. Respiratory: Airway is patent Respiratory effort is even, unlabored, Respiratory pattern is regular, symmetrical. GI: Abdomen is flat, non-distended, Abd is soft and non tender X 4 quads. Reports lower abdominal pain, upper abdominal pain, nausea, vomiting. : No signs and/or symptoms were reported regarding the genitourinary system. EENT: No signs and/or symptoms were reported regarding the EENT system. Derm: No signs and/or symptoms reported regarding the dermatologic system. Musculoskeletal: Reports pain in back general unwell feeling. 00:43 Reassessment: Patient and/or family updated on plan of care and expected duration. Pain tm6 level reassessed. Patient is alert, oriented x 3, equal unlabored respirations, skin warm/dry/pink. 01:08 Reassessment: Patient states feeling better. tm6 Vital Signs: 08/06 23:21 BP 128 / 68; Pulse 72; Resp 18; Temp 98; Pulse Ox 99% ; Weight 52.16 kg; Height 5 ft. 8 as6 in. ; Pain 7/10; 08/07 00:39 BP 129 / 49; Pulse 74; Pulse Ox 100% on R/A; Pain 3/10; tm6 01:07 BP 129 / 49; Pulse 68; Resp 19; Temp 97.5; Pulse Ox 100% on R/A; Pain 0/10; tm6 08/06 23:21 Body Mass Index 17.49 (52.16 kg, 172.72 cm) as6 08/06 23:21 Pain Scale: Adult as6 08/07 00:39 Pain Scale: Adult tm6 01:07 Pain Scale: Adult tm6 ED Course: 08/06 23:05 Patient arrived in ED. ra3 23:09 Mell [facility]C [facility]. as6 23:09 Dianna Ballard MD is Attending Physician. as6 23:22 Triage completed. as6 23:39 Oracio Block, CARROL is Primary Nurse. tm6 23:49 CBC with Diff Sent. tm6 23:49 CMP Sent. tm6 23:49 Lipase Sent. tm6 23:49 Inserted saline lock: 22 gauge in right antecubital area, using aseptic technique. tm6 08/07 00:07 CT Abd/Pelvis - IV Contrast Only In Process Unspecified. EDMS 00:35 Patient has correct armband on for positive identification. Bed in low position. Call tm6 light in reach. Side rails up X 1. Provided Education on: use of call mahan. Client placed on continuous cardiac and pulse oximetry monitoring. NIBP monitoring applied. Pulse ox on. NIBP on. Door closed. Noise minimized. 00:35 Arm band placed on right wrist. tm6 01:08 No provider procedures requiring assistance completed. IV discontinued, intact, tm6 bleeding controlled, No redness/swelling at site. Pressure dressing applied. Administered Medications: 00:02 Drug: NS 0.9% IV 1000 ml IV at 1 bolus Per protocol; 1000 mL bolus Route: IV; Rate: 1 tm6 bolus; Site: right antecubital; 00:59 Follow up: IV Status: Completed infusion; IV Intake: 1000ml tm6 00:02 Drug: Ondansetron IVP 4 mg IVP once; over 2 minutes Route: IVP; Site: right antecubital;tm6 00:59 Follow up: Response: Marked relief of symptoms tm6 00:02 Drug: Ketorolac IVP 15 mg IVP once Route: IVP; Site: right antecubital; tm6 00:59 Follow up: Response: Pain is decreased tm6 01:07 Drug: Ciprofloxacin PO 500 mg PO once Route: PO; tm6 01:07 Drug: metroNIDAZOLE PO 500 mg PO once Route: PO; tm6 Medication: 00:35 VIS not applicable for this client. tm6 Intake: 00:59 IV: 1000ml; Total: 1000ml. tm6 Outcome: 00:57 Discharge ordered by MD. salvador 01:08 Discharged to home ambulatory, with friend, tm6 01:08 Condition: stable 01:08 Discharge instructions given to patient, friend, Instructed on discharge instructions, follow up and referral plans. medication usage, Demonstrated understanding of instructions, follow-up care, medications, Prescriptions given X 3, 01:08 Patient left the ED. tm6 Signatures: Dispatcher [employer] EDHI Mell Burns FNP-C FNP-Ckb Jimmie Washington, RN RN as6 Oracio Block, RN RN tm6 Zee Khan ra3
[2023-08-08] MEDS ORDERED: CIPROFLOXACIN HCL 500 MG TAB ONE (01:01)
[2023-08-08] MEDS ORDERED: metroNIDAZOLE 500 MG TABLET ONE (01:01)
[2023-08-08 01:17] VITALS: BP 129/49; TEMP 97.5; O2SAT 100
--- NOTE | 2023-08-08 11:16 | RAD REPORT ---
EXAM DESCRIPTION: CT ABDOMEN PELVIS WITHOUT IV CONTRAST CLINICAL HISTORY: Female, 89 years old, ABD PAIN COMPARISON: None. TECHNIQUE: CT acquisition of the abdomen and pelvis without contrast. Coronal and sagittal reformatt ed images provided. This exam was performed according to departmental dose-optimization program which includes automated exposure control, adjustment of the mA and/or kV according to patient size, and/o r use of iterative reconstruction technique. FINDINGS: SUPPORTIVE DEVICES: Partially imaged cardiac pacer leads in the right heart. LOWER CHEST: Mild basilar scarring/atelectasis with a few tree-in-bud nodules in both lung bases. Ami ged heart is unremarkable. Left breast microcalcifications near probable scarring. ABDOMEN AND PELVIS: Lack of intravenous contrast limits evaluation of the abdominal and pelvic viscera and vascular struc tures. Liver: Several small calcifications in the left greater than right lobe. Gallbladder and bile ducts: Unremarkable. Pancreas: Small calcifications of the head and uncinate process. Spleen: Multiple dystrophic calcifications. Adrenal glands: Unremarkable. Kidneys and ureters: Two 1 mm stones are present within the pelvic portion of the right ureter (axial images 57 and 60/88) with mild upstream hydroureteronephrosis. Additional bilateral nonobstructing 2 to 6 mm stones are present within both renal collecting systems. The left ureter is unremarkable. Bladder: Normal. Reproductive organs: Absent uterus. No identified pelvic mass. GI tract: Small hiatal hernia. Otherwise the distal esophagus, stomach, duodenum and small bowel are unremarkable. No evidence of appendicitis. The large bowel is normal in caliber without wall thickeni ng. Colonic diverticulosis without diverticulitis. Lymph nodes: No obvious adenopathy. Peritoneum: No evidence of ascites, fluid collection, or free air. Abdominal wall: Ventral postsurgical change. Vessels: Atherosclerosis without evidence of aneurysm. MUSCULOSKELETAL: No acute osseous abnormality. Heterogeneous bone mineralization. Transitional lumbos acral anatomy. Interbody spacers of L3-L4 and L4-L5, and interspinous fixation of L2-L3 without evide nce of hardware complication. Levocurvature with apex at L2-L3. Degenerative change of the nonfixated spine and the pelvis. IMPRESSION: 1. Punctate stones in the pelvic portion of the right ureter associated with mild obst ructive uropathy. 2. Additional bilateral nonobstructing nephrolithiasis. 3. Uncomplicated colonic diverticulosis. 4. Sequela of prior granulomatous disease, and probable chronic pancreatitis. 5. Small hiatal hernia. 6. Heterogeneous bone mineralization may be due to osteopenia, systemic or metastatic disease. Furt her outpatient workup is recommended. 7. Evidence of scarring associated with microcalcifications in the posterior depth of the left nithya st, correlate with surgical/procedural history and recommend outpatient workup to include mammography is patient is not screening current. 8. Evidence of chronic atypical infection in the lung bases. 9. Additional chronic and incidental findings above. Electronically signed by: Paul Mart MD 08/08/2023 02:03 AM CDT Due to temporary technical issues with the PACS/Fluency reporting system, reports are being signed by the in house radiologist without review as a courtesy to ensure prompt reporting. The interpreting r adiologist is fully responsible for the content of the report.
== END 2023-08-08 01:08 | disposition home or self-care (01) ==
LOC: ER 23:01
DX: K52.9 Noninfective gastroenteritis and colitis, unspecified (principal)
CPT/HCPCS: 36415; 74177; 80053; 83690; 85025; 96361; 96374; 96375; 99284; J2405; J7030; Q9967